=== PATIENT | male | born 1955 | race Caucasian/White ===

== ENCOUNTER 2017-03-19 03:02 | Emergency (ER) | payer OTHER, MEDICAID ==
[2017-03-19] MEDS ORDERED: NS 1,000 ML IV ONE (03:26)
[2017-03-19] MEDS ORDERED: LORazepam 2 MG/ML INJ IVP ONE (03:26)
--- NOTE | 2017-03-19 03:31 | EDPHY ---
H & P Stated Complaint: SHABBIR W/D Time Seen by Provider: 03/19/17 03:15 HPI/ROS: HPI The patient presents with alcohol withdrawal symptoms. He says since midnight tonight when he took his last drink he has been experiencing palpitations, hallucinations that there is someone in his apartment, tremors and anxiety. He has been drinking 1 gal of vodka and 4 beers daily for the last several days. He cannot recall the last time that he was sober. His symptoms started slowly and have gotten progressively worse. He says he is not taking any of his medications including his medications for schizophrenia for the last 2 years. He does not have any interest in going to the [facility].. REVIEW OF SYSTEMS Constitutional: No fever, no chills. Eyes: No discharge. ENT: No sore throat. Cardiovascular: No chest pain, no palpitations. Respiratory: No cough, no shortness of breath. Gastrointestinal: No abdominal pain, no vomiting. Genitourinary: No hematuria. Musculoskeletal: No back pain. Skin: No rashes. Neurological: No headache. PMHx: Hypertension, bipolar disorder, schizoaffective disorder Soc Hx: Lives in an apartment by himself, alcohol abuse PHYSICAL General Appearance: Alert, no distress Eyes: Pupils equal and round no pallor or injection ENT, Mouth: Mucous membranes moist Respiratory: There are no retractions, lungs are clear to auscultation Cardiovascular: Tachycardic rate and regular rhythm Gastrointestinal: Abdomen is soft and non-tender, no masses, bowel sounds normal Neurological: A&O, fine hand tremor, tongue wag is present Skin: Warm and dry, no rashes Musculoskeletal: Neck is supple non tender Extremities: symmetrical, full range of motion Psychiatric: Patient is oriented X 3, there is no agitation Source: Patient Exam Limitations: No limitations - Personal History Current Tetanus/Diphtheria Vaccine: Yes Current Tetanus Diphtheria and Acellular Pertussis (TDAP): Yes Tetanus Vaccine Date: 03/25/11 - Medical/Surgical History Hx Asthma: No Hx Chronic Respiratory Disease: No Hx Diabetes: No Hx Cardiac Disease: No Hx Renal Disease: No Hx Cirrhosis: No Hx Alcoholism: Yes Hx HIV/AIDS: No Hx Splenectomy or Spleen Trauma: No Other PMH: PMH- Prostate Ca., Hep. C, HTN, ETOH, bipolar, schizo affective. PSH - bilat feet, knee replacement, glaucoma. arthritis - Social History Smoking Status: Never smoked Constitutional: Initial Vital Signs Temperature (C) 36.7 C 03/19/17 03:07 Heart Rate 107 H 03/19/17 03:07 Respiratory Rate 16 03/19/17 03:07 Blood Pressure 153/108 H 03/19/17 03:07 O2 Sat (%) 94 03/19/17 03:07 O2 Delivery Mode Room Air Allergies/Adverse Reactions: Iodinated Contrast- Oral and IV Dye Allergy (Unknown, Verified 03/19/17 03:07) Unknown Home Medications: Medication Instructions Recorded ARIPiprazole [Abilify 5 mg (*)] 15 mg PO DAILY #30 tab 04/07/16 Benztropine Mesylate [Cogentin] 1 mg PO BID #60 tab 04/07/16 Bimatoprost 0.01% [Lumigan 0.01% 1 drops EACHEYE DAILY #1 opht.btl 04/07/16 (*)] Ibuprofen [Motrin (*)] 600 mg PO DAILY PRN #0 tab 04/07/16 Lisinopril [Zestril 20 mg (*)] 20 mg PO DAILY #30 tab 04/07/16 Meloxicam [Mobic 15 mg] 15 mg PO DAILY #30 tablet 04/07/16 Naltrexone HCl [Revia] 25 mg PO BID #60 tab 04/07/16 Zolpidem Tartrate [Ambien 10 mg] 10 mg PO HS #30 tablet 04/07/16 Medical Decision Making Differential Diagnosis: This is a 62-year-old male with schizoaffective disorder, bipolar disorder who presents from home after last drink of alcohol approximately 3 and 0.5 hours ago with symptoms of alcohol withdrawal. Differential diagnosis includes alcohol withdrawal, schizoaffective disorder with psychosis, benzodiazepine withdrawal. In the emergency department labs were checked and were relatively unremarkable, his alcohol level was quite elevated. He received IV fluids in a single dose of Ativan with improvement in his symptoms to the point of complete resolution. He felt well enough to go home. I offered him discharged to the [facility], however he declines, he says he does not like it there and would like to just go home. I will not send him home with [facility] in this case. We discussed return precautions the necessity to follow up with primary care doctor as he is not taking any of his medications currently. - Data Points Laboratory Results: Laboratory Results 03/19/17 03:52 03/19/17 03:52 Medications Given: Discontinued Medications Sodium Chloride (Ns) 1,000 mls @ 0 mls/hr IV EDNOW ONE; Wide Open PRN Reason: Protocol Stop: 03/19/17 03:27 Last Admin: 03/19/17 03:57 Dose: 1,000 mls Lorazepam (Ativan Injection) 1 mg IVP EDNOW ONE Stop: 03/19/17 03:27 Last Admin: 03/19/17 03:57 Dose: 1 mg Departure - Departure Disposition: Home, Routine, Self-Care Clinical Impression: Alcohol withdrawal Qualifiers: Complication of substance-induced condition: with delirium Qualified Code(s): F10.231 - Alcohol dependence with withdrawal delirium Condition: Good Instructions: Alcohol Withdrawal (ED) Additional Instructions: Please return to the emergency room if your worse in any way. Referrals: [facility],. [Clinic] - As per Instructions
[2017-03-19 04:11] LABS: % IMMATURE GRANULYOCYTES 0.2 % (0.0-1.1); ABSOLUTE IMMATURE GRANULOCYTES 0.01 10^3/uL (0.00-0.10); ADD DIFF? NO; ADD MORPH? NO; ADD SCAN? NO; ATYPICAL LYMPHOCYTE FLAG 10 (0-99); FRAGMENT RBC FLAG 0 (0-99); HEMATOCRIT 44.9 % (40.0-51.0); HEMOGLOBIN 15.4 g/dL (13.7-17.5); LEFT SHIFT FLG 0 (0-99); LIPEMIA HEMOLYSIS FLAG 90 (0-99); MEAN CELL HEMOGLOBIN 31.7 pg (27.9-34.1); MEAN CELL HEMOGLOBIN CONCENTR. 34.3 g/dL (32.4-36.7); MEAN CELL VOLUME 92.4 fL (81.5-99.8); MEAN PLATELET VOLUME 8.9 fL (8.7-11.7); PLATELET CLUMPS FLAG 0 (0-99); PLATELET COUNT 361 10^3/uL (150-400); RED BLOOD CELL COUNT 4.86 10^6/uL (4.40-6.38); RED CELL DISTRIBUTION WIDTH 13.3 % (11.5-15.2)
[2017-03-19 04:23] LABS: ALANINE AMINOTRANSFERASE 46 IU/L (21-72); ALBUMIN 4.6 g/dL (3.5-5.0); ALKALINE PHOSPHATASE 91 IU/L (38-126); ANION GAP 17 mEq/L (8-16); ASPARTATE AMINOTRANSFERASE 41 IU/L (17-59); BILIRUBIN,TOTAL 0.5 mg/dL (0.1-1.4); CALCIUM 9.1 mg/dL (8.5-10.4); CARBON DIOXIDE 19 mEq/l (22-31); CHLORIDE 110 mEq/L (97-110); ETHANOL SERUM 232 mg/dL (0-10); GLOMERULAR FILTRATION RATE > 60; GLUCOSE 108 mg/dL (70-100); POTASSIUM 5.1 mEq/L (3.5-5.2); SODIUM 146 mEq/L (134-144); TOTAL PROTEIN 7.6 g/dL (6.3-8.2)
[2017-03-19 05:37] VITALS: BP 110/80; PULSE 99; RESP 14; TEMP 97.9; O2SAT 95
== END 2017-03-19 05:35 | disposition home or self-care (01) ==
CPT/HCPCS: 96361; 96374; 99284; J2060; 80305; G0480

== ENCOUNTER 2017-03-25 10:48 | Emergency (ER) | payer OTHER, MEDICAID ==
--- NOTE | 2017-03-25 11:43 | EDPHY ---
H & P Stated Complaint: Pt is intoxicated;states he had 2 sz this morning;off sz meds > 1yr HPI/ROS: CHIEF COMPLAINT: "I had two seizures last night" HISTORY OF PRESENT ILLNESS: The patient is an intoxicated 62 y/o male with a history of alcohol withdrawal seizures who presents for evaluation after two reported seizures last night. He has a history of schizoaffective disorder and polysubstance abuse and several prior psychiatric admissions. He thinks that he struck his head on a park bench after seizing, but he cannot remember exactly what happened. He woke up outside this morning. He reports drinking a gallon of alcohol and using methamphetamine last night, and drinking alcohol again at 10 am today, 2 hours ago. However, he thinks he is currently withdrawing from alcohol. He does not attend rehab because it is too expensive and the [facility] "is a toilet". REVIEW OF SYSTEMS: A ten point review of systems was performed and is negative with the exception of the items mentioned in the HPI. Past medical history includes: 1. Schizoaffective Disorder 2. Bipolar Disorder 3. Chronic noncompliance 4. Hypertension 5. Polysubstance abuse including alcohol, cocaine, and methamphetamine. 6. Hypertension 7. Hepatitis-C Prior medical records reviewed including psychiatric admission on 03/30/16 for suicidal ideation. Past surgical history: Denies Social history: Retired. History of alcohol and methamphetamine abuse. Nonsmoker. General Appearance: Alert. Vital signs reviewed. Blood pressure 142/103. Heart rate 102. Head: Normocephalic atraumatic. Eyes: Pupils equal and round, no conjunctival injection, no discharge. Anicteric. ENT, Mouth: Mucous membranes are moist, no oropharyngeal erythema or edema. Neck: No lymphadenopathy, supple. Respiratory: Lungs are clear to auscultation; no wheezes, rales, or rhonchi. Cardiovascular: Mild tachycardia, regular; no murmur, rub, or gallop. Gastrointestinal: Abdomen is soft and nontender, no masses or organomegaly, bowel sounds normal. Skin: Warm and dry, no rashes on exposed skin, normal color. Back: Nontender to palpation over the thoracolumbar spine. No CVAT. Extremities: No lower extremity edema, no calf tenderness or swelling. Neurological: Alert and oriented. Moving all four extremities easily and equally. Slurred speech consistent with intoxication. Psychiatric: Normal affect. - Personal History Current Tetanus Diphtheria and Acellular Pertussis (TDAP): Yes Tetanus Vaccine Date: 03/25/11 - Medical/Surgical History Hx Asthma: No Hx Chronic Respiratory Disease: No Hx Diabetes: No Hx Cardiac Disease: No Hx Renal Disease: No Hx Cirrhosis: No Hx Alcoholism: Yes Hx HIV/AIDS: No Hx Splenectomy or Spleen Trauma: No Other PMH: PMH- Prostate Ca., Hep. C, HTN, ETOH, bipolar, schizo affective, withsrawal szs. PSH- bilat feet, knee replacement, glaucoma. arthritis - Social History Smoking Status: Never smoked Constitutional: Initial Vital Signs Temperature (C) 36.7 C 03/25/17 10:56 Heart Rate 102 H 03/25/17 10:56 Respiratory Rate 18 03/25/17 10:56 Blood Pressure 142/103 H 03/25/17 10:56 O2 Sat (%) 94 03/25/17 10:56 O2 Delivery Mode Room Air O2 (L/minute) 2 Allergies/Adverse Reactions: Iodinated Contrast- Oral and IV Dye Allergy (Unknown, Verified 03/25/17 10:55) Unknown Home Medications: Medication Instructions Recorded ARIPiprazole [Abilify 5 mg (*)] 15 mg PO DAILY #30 tab 04/07/16 Benztropine Mesylate [Cogentin] 1 mg PO BID #60 tab 04/07/16 Bimatoprost 0.01% [Lumigan 0.01% 1 drops EACHEYE DAILY #1 opht.btl 04/07/16 (*)] Ibuprofen [Motrin (*)] 600 mg PO DAILY PRN #0 tab 04/07/16 Lisinopril [Zestril 20 mg (*)] 20 mg PO DAILY #30 tab 04/07/16 Meloxicam [Mobic 15 mg] 15 mg PO DAILY #30 tablet 04/07/16 Naltrexone HCl [Revia] 25 mg PO BID #60 tab 04/07/16 Zolpidem Tartrate [Ambien 10 mg] 10 mg PO HS #30 tablet 04/07/16 Medical Decision Making ED Course/Re-evaluation: The patient is an intoxicated 62 y/o male presenting for evaluation of seizures secondary to what he believes is alcohol withdrawal despite drinking "1 gallon" of alcohol yesterday. Upon examination he appears intoxicated with no visible trauma or other notable findings. He insists that he wants to seek treatment, but does not want to go to the [facility] Plan for basic labs + EtOH serum level and observation. Reassessed patient, counseled him to decrease his alcohol use and follow up with [facility] if he wishes to detox. He became somewhat belligerent because he was not being admitted for withdrawal. I do not think that he is actively withdrawing. Repeat vital signs show him to be without tachycardia and his blood/pressure is decreased. He did not receive medication here. He was requesting medication for withdrawal. Case management spoke with him and he was given information about [facility]; she offered to call to see if there was a bed available for him but he refuses to remain in the department. He will be returning to his home by [facility]. He had no seizure activity in the department. I do not know whether he had a seizure last night or not. I do not find any evidence of injury related to either falling or seizing. He remained slightly hypertensive in the emergency department. He has a history of hypertension. He is advised to follow up at [facility] concerning blood pressure. Return precautions given. Differential Diagnosis: Seizure including but not limited to electrolyte abnormality, alcohol withdrawal , medication noncompliance, head injury, and breakthrough seizure. - Data Points Laboratory Results: Laboratory Results 03/25/17 11:40 03/25/17 11:40 Departure - Departure Disposition: Home, Routine, Self-Care Clinical Impression: Polysubstance abuse Alcohol intoxication Qualifiers: Complication of substance-induced condition: uncomplicated Qualified Code(s): F10.920 - Alcohol use, unspecified with intoxication, uncomplicated Condition: Good Instructions: Alcohol Intoxication (ED), Abuse of Alcohol (ED), Polysubstance Abuse (ED) Additional Instructions: Medically clear for detox. 1. Go directly to the [facility] for detox if you want to. 2. Call [facility] for information about admission for detox. 3. Follow up with your primary care provider for any unimproved symptoms within the next week. 4. Decrease alcohol use and avoid illicit substances. [facility] [phone] Referrals: [facility] Detox 24 Hours [Outside] - As per Instructions [facility] [Outside] - As per Instructions Hotline [Outside] - As per Instructions Physician Review and Approval Statement: 03/25/17 11:43 Portions of this note were transcribed by the senior medical director. I, Dr. Jessica Miguel, personally performed the history, physical exam, and medical decision- making; and confirmed the accuracy of the information in the transcribed note.
[2017-03-25 11:56] LABS: % IMMATURE GRANULYOCYTES 0.2 % (0.0-1.1); ABSOLUTE IMMATURE GRANULOCYTES 0.01 10^3/uL (0.00-0.10); ADD DIFF? NO; ADD MORPH? NO; ADD SCAN? NO; ATYPICAL LYMPHOCYTE FLAG 0 (0-99); FRAGMENT RBC FLAG 0 (0-99); HEMATOCRIT 44.8 % (40.0-51.0); HEMOGLOBIN 15.4 g/dL (13.7-17.5); LEFT SHIFT FLG 0 (0-99); LIPEMIA HEMOLYSIS FLAG 90 (0-99); MEAN CELL HEMOGLOBIN 31.4 pg (27.9-34.1); MEAN CELL HEMOGLOBIN CONCENTR. 34.4 g/dL (32.4-36.7); MEAN CELL VOLUME 91.4 fL (81.5-99.8); MEAN PLATELET VOLUME 8.9 fL (8.7-11.7); PLATELET CLUMPS FLAG 0 (0-99); PLATELET COUNT 325 10^3/uL (150-400); RED CELL DISTRIBUTION WIDTH 13.4 % (11.5-15.2)
[2017-03-25 12:14] LABS: ANION GAP 16 mEq/L (8-16); CALCIUM 9.2 mg/dL (8.5-10.4); CARBON DIOXIDE 22 mEq/l (22-31); CHLORIDE 108 mEq/L (97-110); GLOMERULAR FILTRATION RATE > 60; GLUCOSE 93 mg/dL (70-100); POTASSIUM 4.2 mEq/L (3.5-5.2); SODIUM 146 mEq/L (134-144)
[2017-03-25 13:00] LABS: ETHANOL SERUM 334 mg/dL (0-10)
[2017-03-25 14:30] VITALS: BP 129/88; PULSE 87; RESP 15; TEMP 98.9; O2SAT 96
== END 2017-03-25 14:28 | disposition home or self-care (01) ==
DX: F19.10 Other psychoactive substance abuse, uncomplicated (principal); F10.920 Alcohol use, unspecified with intoxication, uncomplicated; I10 Essential (primary) hypertension; Z85.46 Personal history of malignant neoplasm of prostate
CPT/HCPCS: G0480

== ENCOUNTER 2017-04-07 00:56 | Emergency (ER) | payer OTHER, MEDICAID ==
[2017-04-07 01:08] VITALS: RESP 16
[2017-04-07] MEDS ORDERED: AMOXICILLIN 250 MG PREPACK#4 BTL TAKEHOME ONE ×2 (01:42)
--- NOTE | 2017-04-07 01:46 | EDPHY ---
H & P Stated Complaint: left side upper dental pain Time Seen by Provider: 04/07/17 01:32 HPI/ROS: Chief Complaint: Tooth pain HPI: 62-year-old male presenting with 4 days of worsening left upper tooth pain. Patient has an appoint with his dentist tomorrow but states the pain got too severe. He has been taking ibuprofen and acetaminophen without any relief. Patient states that the pain radiates up to below his eye. It hurts to chew. Patient also states tender along his left upper gum. He has also been drinking alcohol tonight to help relieve his pain. ROS: 10 point Review of Systems is negative except as noted in the HPI. PMH: Hypertension Family History: [non-contributory] Physical Exam: General: Awake, alert, no acute distress HEENT: The mouth: He has got tenderness and swelling to the gums above his 1st and 2nd premolars. He has tenderness to percussion. He has no trismus. Oropharynx is normal. Neck: No cervical lymphadenopathy, full range of motion without pain. Skin: No rash - Personal History Current Tetanus Diphtheria and Acellular Pertussis (TDAP): Yes Tetanus Vaccine Date: 03/25/11 - Medical/Surgical History Hx Asthma: No Hx Chronic Respiratory Disease: No Hx Diabetes: No Hx Cardiac Disease: No Hx Renal Disease: No Hx Cirrhosis: No Hx Alcoholism: Yes Hx HIV/AIDS: No Hx Splenectomy or Spleen Trauma: No Other PMH: PMH- Prostate Ca., Hep. C, HTN, ETOH, bipolar, schizo affective, withsrawal szs. PSH- bilat feet, knee replacement, glaucoma. arthritis - Social History Smoking Status: Never smoked Constitutional: Initial Vital Signs Temperature (C) 36.5 C 04/07/17 01:02 Heart Rate 98 04/07/17 01:02 Respiratory Rate 16 04/07/17 01:02 Blood Pressure 138/100 H 04/07/17 01:02 O2 Sat (%) 96 04/07/17 01:02 O2 Delivery Mode Room Air Allergies/Adverse Reactions: Iodinated Contrast- Oral and IV Dye Allergy (Unknown, Verified 03/25/17 10:55) Unknown Home Medications: Medication Instructions Recorded ARIPiprazole [Abilify 5 mg (*)] 15 mg PO DAILY #30 tab 04/07/16 Benztropine Mesylate [Cogentin] 1 mg PO BID #60 tab 04/07/16 Bimatoprost 0.01% [Lumigan 0.01% 1 drops EACHEYE DAILY #1 opht.btl 04/07/16 (*)] Ibuprofen [Motrin (*)] 600 mg PO DAILY PRN #0 tab 04/07/16 Lisinopril [Zestril 20 mg (*)] 20 mg PO DAILY #30 tab 04/07/16 Meloxicam [Mobic 15 mg] 15 mg PO DAILY #30 tablet 04/07/16 Naltrexone HCl [Revia] 25 mg PO BID #60 tab 04/07/16 Zolpidem Tartrate [Ambien 10 mg] 10 mg PO HS #30 tablet 04/07/16 Amoxicillin 500 mg PO TID 7 Days cap 04/07/17 Medical Decision Making Procedures: Procedure note: inferior orbital nerve block. Indication: Dental pain. Patient consented to the procedure verbally. Landmarks were identified. Using a: Control syringe the fossa for the inferior orbital nerve was identified. With an intraoral approach the needle was guided to that area and a total of 3 mL of 0.5% bupivacaine without epinephrine was infiltrated into the area. The patient tolerated procedure well. He had good anesthesia with this. There were no complications. Procedure was performed by me. ED Course/Re-evaluation: Patient with left upper premolar dental abscess. Patient had good pain relief with a nerve block. He has been given 500 mg of amoxicillin. He is referred to follow up with his dentist as an outpatient. Departure - Departure Disposition: Home, Routine, Self-Care Clinical Impression: Dental abscess Condition: Good Instructions: Dental Abscess (ED) Additional Instructions: You may alternate ibuprofen with acetaminophen every 4 hours as needed for pain. Please make sure to take her full course of antibiotics. Follow up with her dentist tomorrow as scheduled. Referrals: Leidy Dinero MD [Primary Care Provider] - As per Instructions Prescriptions: Amoxicillin 500 mg PO TID 7 Days cap
[2017-04-07 01:49] VITALS: BP 133/97; PULSE 81; TEMP 98.1; O2SAT 97
== END 2017-04-07 02:02 | disposition home or self-care (01) ==
PROC: 3E0X3BZ Introduction of Anesthetic Agent into Cranial Nerves, Percutaneous Approach (ICD-10-PCS; principal; 2017-04-07)
DX: K04.7 Periapical abscess without sinus (principal); I10 Essential (primary) hypertension; Z85.46 Personal history of malignant neoplasm of prostate

== ENCOUNTER 2017-04-14 17:04 | Emergency (ER) | payer OTHER, MEDICAID ==
[2017-04-14 17:14] VITALS: BP 145/102; PULSE 108; RESP 18; TEMP 98.1; O2SAT 94
[2017-04-14] MEDS ORDERED: CHLORDIAZEPOXIDE 25MG PREPK#6 BTL TAKEHOME ONE (17:41)
--- NOTE | 2017-04-14 17:44 | EDPHY ---
H & P Stated Complaint: Brought by brother for detox;binge drinking past 3 wks Time Seen by Provider: 04/14/17 17:34 HPI/ROS: CHIEF COMPLAINT: Referral for alcohol recovery HISTORY OF PRESENT ILLNESS: The patient is a 62-year-old alcoholic man who is brought to the emergency department by his brother. He is agree to go to the [facility] recovery [facility]. His brother spoke with them earlier on the phone and they mentioned that from there they may be able to get him to [facility]. Brother is willing to take him there. Patient is asking for Librium to have when he gets there. REVIEW OF SYSTEMS: Constitutional: denies: chills, fever, recent illness, recent injury EENTM: denies: blurred vision, double vision, nose congestion Respiratory: denies: cough, shortness of breath Cardiac: denies: chest pain, irregular heart rate, lightheadedness, palpitations Gastrointestinal/Abdominal: denies: abdominal pain, diarrhea, nausea, vomiting, blood streaked stools Genitourinary: denies: dysuria, frequency, hematuria, pain Musculoskeletal: denies: joint pain, muscle pain Skin: denies: lesions, rash, jaundice, bruising Neurological: denies: headache, numbness, paresthesia, tingling, dizziness, weakness Hematologic/Lymphatic: denies: blood clots, easy bleeding, easy bruising Immunologic/allergic: denies: HIV/AIDS, transplant EXAM: GENERAL: Intoxicated HEAD: Atraumatic, normocephalic. EYES: Pupils equal round and reactive to light, extraocular movements intact, sclera anicteric, conjunctiva are normal. ENT: TMs normal, nares patent, oropharynx clear without exudates. Moist mucous membranes. NECK: Normal range of motion, supple without lymphadenopathy or JVD. LUNGS: Breath sounds clear to auscultation bilaterally and equal. No wheezes rales or rhonchi. HEART: Regular rate and rhythm without murmurs, rubs or gallops. ABDOMEN: Soft, nontender, normoactive bowel sounds. No guarding, no rebound. No masses appreciated. BACK: No CVA tenderness, no spinal tenderness, step-offs or deformities EXTREMITIES: Normal range of motion, no pitting or edema. No clubbing or cyanosis. NEUROLOGICAL: Slightly slurred speech, Cranial nerves II through XII grossly intact. Normal speech, normal gait. 5/5 strength, normal movement in all extremities, normal sensation PSYCH: Normal mood, normal affect. SKIN: Warm, dry, normal turgor, no visible rashes or lesions. Source: Patient, Family Exam Limitations: Intoxication - Personal History Current Tetanus/Diphtheria Vaccine: Yes Tetanus Vaccine Date: 03/25/11 - Medical/Surgical History Hx Asthma: No Hx Chronic Respiratory Disease: No Hx Diabetes: No Hx Cardiac Disease: No Hx Renal Disease: No Hx Cirrhosis: No Hx Alcoholism: Yes Hx HIV/AIDS: No Hx Splenectomy or Spleen Trauma: No Other PMH: PMH- Prostate Ca., Hep. C, HTN, ETOH, bipolar, schizo affective, withsrawal szs. PSH- bilat feet, knee replacement, glaucoma. arthritis - Family History Significant Family History: No pertinent family hx - Social History Smoking Status: Never smoked Alcohol Use: Heavy Constitutional: Initial Vital Signs Temperature (C) 36.7 C 04/14/17 17:11 Heart Rate 108 H 04/14/17 17:11 Respiratory Rate 18 04/14/17 17:11 Blood Pressure 145/102 H 04/14/17 17:11 O2 Sat (%) 94 04/14/17 17:11 O2 Delivery Mode Room Air Allergies/Adverse Reactions: Iodinated Contrast- Oral and IV Dye Allergy (Unknown, Verified 04/14/17 17:10) Unknown Home Medications: Medication Instructions Recorded ARIPiprazole [Abilify 5 mg (*)] 15 mg PO DAILY #30 tab 04/07/16 Benztropine Mesylate [Cogentin] 1 mg PO BID #60 tab 04/07/16 Bimatoprost 0.01% [Lumigan 0.01% 1 drops EACHEYE DAILY #1 opht.btl 04/07/16 (*)] Ibuprofen [Motrin (*)] 600 mg PO DAILY PRN #0 tab 04/07/16 Lisinopril [Zestril 20 mg (*)] 20 mg PO DAILY #30 tab 04/07/16 Meloxicam [Mobic 15 mg] 15 mg PO DAILY #30 tablet 04/07/16 Naltrexone HCl [Revia] 25 mg PO BID #60 tab 04/07/16 Zolpidem Tartrate [Ambien 10 mg] 10 mg PO HS #30 tablet 04/07/16 Amoxicillin 500 mg PO TID 7 Days cap 04/07/17 Amoxicillin Trihydrate 500 mg PO 04/14/17 [Amoxicillin] Medical Decision Making ED Course/Re-evaluation: The patient's brother will take him to the [facility]. We will give him Librium prepack to give to the [facility]. Patient is agreeable with this. They declined any testing or further workup. Differential Diagnosis: Partial list of the Differential diagnosis considered include but were not limited to; alcohol intoxication, alcoholism and although unlikely based on the history and physical exam, I also considered withdrawal, infection, head injury. I discussed these differential diagnoses and the plan with the patient as well as the usual and expected course. The patient understands that the diagnosis is provisional and that in medicine we are not always correct and that further workup is often warranted. Usual and customary warnings were given. All of the patient's questions were answered. The patient was instructed to return to the emergency department should the symptoms at all worsen or return, otherwise to followup with the physician as we discussed. - Data Points Medications Given: Discontinued Medications Chlordiazepoxide (Librium 25 Mg Prepack#6) 1 btl TAKEHOME EDNOW ONE Stop: 04/14/17 17:42 Last Admin: 04/14/17 18:02 Dose: 1 btl Departure - Departure Disposition: Home, Routine, Self-Care Clinical Impression: Alcohol dependence Qualifiers: Substance use status: with intoxication Complication of substance-induced condition: with unspecified complication Qualified Code(s): F10.229 - Alcohol dependence with intoxication, unspecified Condition: Fair Instructions: Alcohol Intoxication (ED) Referrals: Leidy Dinero MD [Primary Care Provider] - As per Instructions
== END 2017-04-14 18:00 | disposition home or self-care (01) ==
DX: F10.229 Alcohol dependence with intoxication, unspecified (principal); I10 Essential (primary) hypertension; Z85.46 Personal history of malignant neoplasm of prostate

== ENCOUNTER 2017-04-16 01:15 | Emergency (ER) | payer OTHER, MEDICAID ==
[2017-04-16 01:27] VITALS: BP 152/126; PULSE 107; RESP 16; TEMP 97.9; O2SAT 96
--- NOTE | 2017-04-16 01:34 | EDPHY ---
H & P Stated Complaint: ETOH HPI/ROS: HPI CHIEF COMPLAINT: Alcohol withdraw HISTORY OF PRESENT ILLNESS: This patient is 62-year-old male, well-known to the emergency room as well as myself. He is an alcoholic. He drinks alcohol daily. He took a new over here to the emergency room requesting that he gets Librium. He would like to take Librium to help with withdrawal. He states he drank most this evening. Last drink was approximately an hour ago. He presents emergency room slurring his speech. He is intoxicated with alcohol. There is no evidence of alcohol draw at this time. He does not want to go to the [facility]. I explained that I cannot give him Librium to go home on as it is a medication that is rather dangerous and can sedate him. Plus he will most likely continue drink alcohol. He understands this. He does not want to go to the [facility]. He now states he would like to go home. Past Medical History: Depression, schizophrenia, prostate CA, hypertension, alcoholism Past Surgical History: No recent surgery Social History: Daily alcohol use, lives locally. Family History: Noncontributory ROS REVIEW OF SYSTEMS: A comprehensive 10 point review of systems is otherwise negative aside from elements mentioned in the history of present illness. Exam Constitutional smells of alcohol, triage nursing summary reviewed, vital signs reviewed, awake/alert. Eyes normal conjunctivae and sclera, EOMI, PERRLA. HENT normal inspection, atraumatic, moist mucus membranes, no epistaxis, neck supple/ no meningismus, no raccoon eyes. Respiratory clear to auscultation bilaterally, normal breath sounds, no respiratory distress, no wheezing. Cardiovascular rate normal, regular rhythm, no murmur, no edema, distal pulses normal. Gastrointestinal soft, non-tender, no rebound, no guarding, normal bowel sounds, no distension, no pulsatile mass. Genitourinary no CVA tenderness. Musculoskeletal no midline vertebral tenderness, full range of motion, no calf swelling, no tenderness of extremities, no meningismus, good pulses, neurovascularly intact. Skin pink, warm, & dry, no rash, skin atraumatic. Neurologic awake, alert and oriented x 3, AAOx3, moves all 4 extremities equally, motor intact, sensory intact, CN II-XII intact, normal cerebellar, normal vision, slight slurred speech. Normal gait. No ataxia. Psychiatric normal mood/affect. Heme/Lymph/Immune no lymphadenopathy. Differential Diagnosis: Includes but is not limited to in a particular order acute alcohol intoxication, dehydration. Medical Decision Making: Plan for this patient breath alcohol. At his request he is requesting be discharged home. I am unable to provide him Librium for home. Source: Patient - Personal History Current Tetanus/Diphtheria Vaccine: Yes Current Tetanus Diphtheria and Acellular Pertussis (TDAP): Yes Tetanus Vaccine Date: 03/25/11 - Medical/Surgical History Hx Asthma: No Hx Chronic Respiratory Disease: No Hx Diabetes: No Hx Cardiac Disease: No Hx Renal Disease: No Hx Cirrhosis: No Hx Alcoholism: Yes Hx HIV/AIDS: No Hx Splenectomy or Spleen Trauma: No Other PMH: PMH- Prostate Ca., Hep. C, HTN, ETOH, bipolar, schizo affective, withsrawal szs. PSH- bilat feet, knee replacement, glaucoma. arthritis - Social History Smoking Status: Never smoked Constitutional: Initial Vital Signs Temperature (C) 36.6 C 04/16/17 01:24 Heart Rate 107 H 04/16/17 01:24 Respiratory Rate 16 04/16/17 01:24 Blood Pressure 152/126 H 04/16/17 01:24 O2 Sat (%) 96 04/16/17 01:24 O2 Delivery Mode Room Air Allergies/Adverse Reactions: Iodinated Contrast- Oral and IV Dye Allergy (Unknown, Verified 04/14/17 17:10) Unknown Home Medications: Medication Instructions Recorded Lisinopril [Zestril 20 mg (*)] 20 mg PO DAILY #30 tab 04/07/16 Departure - Departure Disposition: Home, Routine, Self-Care Clinical Impression: Alcohol intoxication Qualifiers: Complication of substance-induced condition: uncomplicated Qualified Code(s): F10.920 - Alcohol use, unspecified with intoxication, uncomplicated Condition: Good Instructions: Alcohol Intoxication (ED) Referrals: NONE *PRIMARY CARE P,. [Primary Care Provider] - As per Instructions
== END 2017-04-16 01:55 | disposition home or self-care (01) ==
DX: F10.920 Alcohol use, unspecified with intoxication, uncomplicated (principal); I10 Essential (primary) hypertension; Z85.46 Personal history of malignant neoplasm of prostate

== ENCOUNTER → 2017-04-26 | Outpatient (CLI) | payer OTHER, MEDICAID | LOC: FIMAGING 13:52 | PROVIDERS: ATTEND Family Medicine | DX: J84.10 Pulmonary fibrosis, unspecified (principal); I25.10 Atherosclerotic heart disease of native coronary artery without angina pectoris; N20.0 Calculus of kidney; M25.78 Osteophyte, vertebrae ==

== ENCOUNTER 2017-05-16 23:43 | Emergency (ER) | payer OTHER, MEDICAID ==
[2017-05-17] MEDS ORDERED: chlordiazePOXIDE 25 MG CAP PO ONE ×2 (00:43→00:46)
[2017-05-17] MEDS ORDERED: chlordiazePOXIDE 25 MG CAP ONE (00:43)
--- NOTE | 2017-05-17 00:47 | EDPHY ---
H & P Stated Complaint: "severe withdrawals" EtOH and heroin; last EtOH 20 min ago Time Seen by Provider: 05/17/17 00:32 HPI/ROS: HPI The patient presents with alcohol withdrawal which he says has been present for the last about 1 hour. He stopped drinking at about this time. He has been drinking 2 1/5 bottles of alcohol daily in addition to several beers over the last several days. He says yesterday he had 2 seizures at night he believes. He now feels jittery and has hallucinations he says. He says he also has been using heroin over the last several days. He says he does not want to [facility] because it is a waste of his time and does not want to be there. We have called them and they can accept him there. REVIEW OF SYSTEMS Constitutional: No fever, no chills. Eyes: No discharge. ENT: No sore throat. Cardiovascular: No chest pain, no palpitations. Respiratory: No cough, no shortness of breath. Gastrointestinal: No abdominal pain, no vomiting. Genitourinary: No hematuria. Musculoskeletal: No back pain. Skin: No rashes. Neurological: No headache. PMHx: Multiple ER visits for alcohol-related complaints and alcohol withdrawal , history of alcohol withdrawal seizure Soc Hx: Chronic alcohol abuse, heroin use PHYSICAL General Appearance: Alert, no distress Eyes: Pupils equal and round no pallor or injection ENT, Mouth: Mucous membranes moist Respiratory: There are no retractions, lungs are clear to auscultation Cardiovascular: Regular rate and rhythm, becomes tachycardic when he sits up Gastrointestinal: Abdomen is soft and non-tender, no masses, bowel sounds normal Neurological: A&O, moves all extremities, faint hand tremor, there is no tongue wag Skin: Warm and dry, no rashes Musculoskeletal: Neck is supple non tender Extremities: symmetrical, full range of motion Psychiatric: Patient is oriented X 3, there is no agitation Source: Patient Exam Limitations: No limitations - Personal History Current Tetanus/Diphtheria Vaccine: Yes Tetanus Vaccine Date: 03/25/11 - Medical/Surgical History Hx Asthma: No Hx Chronic Respiratory Disease: No Hx Diabetes: No Hx Cardiac Disease: No Hx Renal Disease: No Hx Cirrhosis: No Hx Alcoholism: Yes Hx HIV/AIDS: No Hx Splenectomy or Spleen Trauma: No Other PMH: PMH- Prostate Ca., Hep. C, HTN, ETOH, bipolar, schizo affective, withsrawal szs. PSH- bilat feet, knee replacement, glaucoma. arthritis - Social History Smoking Status: Never smoked Constitutional: Initial Vital Signs Temperature (C) 36.5 C 05/16/17 23:46 Heart Rate 111 H 05/16/17 23:46 Respiratory Rate 17 05/16/17 23:46 Blood Pressure 175/103 H 05/16/17 23:46 O2 Sat (%) 95 05/16/17 23:46 O2 Delivery Mode Room Air Allergies/Adverse Reactions: Iodinated Contrast- Oral and IV Dye Allergy (Unknown, Verified 04/14/17 17:10) Unknown Home Medications: Medication Instructions Recorded Lisinopril [Zestril 20 mg (*)] 20 mg PO DAILY #30 tab 04/07/16 Medical Decision Making Differential Diagnosis: 62-year-old male, frequent ER visitor presents with symptoms of alcohol withdrawal, last drink about 1 hour prior to my assessment. Here he is tachycardic and hypertensive. He does have hand tremor. Differential diagnosis includes alcohol withdrawal, anxiety attack, benzodiazepine withdrawal. I will treat him with Librium 50 mg here and reassess him. The patient improved after receiving the medication, heart rate and blood pressure stabilized. He felt well enough to go home and will be discharged. He declined going [facility], therefore I did not give him a Librium prescription. - Data Points Medications Given: Discontinued Medications Chlordiazepoxide HCl (Librium) 50 mg PO EDNOW ONE Stop: 05/17/17 00:47 Last Admin: 05/17/17 00:47 Dose: 50 mg Chlordiazepoxide HCl (Librium) 50 mg PO EDNOW ONE Stop: 05/17/17 00:44 Last Admin: 05/17/17 00:48 Dose: Not Given Departure - Departure Disposition: Home, Routine, Self-Care Clinical Impression: Alcohol withdrawal delirium Condition: Good Instructions: Alcohol Withdrawal (ED) Referrals: [facility],. [Primary Care Provider] - As per Instructions
[2017-05-17 02:56] VITALS: BP 130/74; PULSE 104; RESP 20; TEMP 97.9; O2SAT 97
== END 2017-05-17 02:56 | disposition home or self-care (01) ==
DX: F10.231 Alcohol dependence with withdrawal delirium (principal); I10 Essential (primary) hypertension; Z85.46 Personal history of malignant neoplasm of prostate

== ENCOUNTER → 2017-05-23 | Outpatient (CLI) | payer OTHER, MEDICAID | LOC: BHFA 11:30 | PROVIDERS: ATTEND Internal Medicine Cardiovascular Disease | DX: I25.10 Atherosclerotic heart disease of native coronary artery without angina pectoris (principal) ==

== ENCOUNTER 2017-05-29 01:54 | Emergency (ER) | payer OTHER, MEDICAID ==
[2017-05-29 01:12] VITALS: RESP 18
--- NOTE | 2017-05-29 01:22 | EDPHY ---
H & P Stated Complaint: ETOH withdrawl Time Seen by Provider: 05/29/17 01:12 MST HPI/ROS: HPI The patient presents with concern for alcohol withdrawal, last alcoholic beverage was at about 9:00 p.m. last night. He drinks 1 to 2-1/5 bottles of hard alcohol daily. He is feeling anxious, tremulous. He has had multiple previous visits for alcohol withdrawal symptoms. He has not had a seizure. He would [facility] to [facility].. REVIEW OF SYSTEMS Constitutional: No fever, no chills. Eyes: No discharge. ENT: No sore throat. Cardiovascular: No chest pain, no palpitations. Respiratory: No cough, no shortness of breath. Gastrointestinal: No abdominal pain, no vomiting. Genitourinary: No hematuria. Musculoskeletal: No back pain. Skin: No rashes. Neurological: No headache. PMHx: Chronic alcohol abuse, previous alcohol withdrawal seizures Soc Hx: Alcohol PHYSICAL General Appearance: Alert, no distress Eyes: Pupils equal and round no pallor or injection ENT, Mouth: Mucous membranes moist Respiratory: There are no retractions, lungs are clear to auscultation Cardiovascular: Tachycardic rate with regular rhythm Gastrointestinal: Abdomen is soft and non-tender, no masses, bowel sounds normal Neurological: A&O, moves all extremities, hand tremor is present bilaterally Skin: Warm and dry, no rashes Musculoskeletal: Neck is supple non tender Extremities: symmetrical, full range of motion Psychiatric: Patient is oriented X 3, there is no agitation Source: Patient Exam Limitations: No limitations - Personal History Current Tetanus/Diphtheria Vaccine: Yes Current Tetanus Diphtheria and Acellular Pertussis (TDAP): Yes Tetanus Vaccine Date: 03/25/11 - Medical/Surgical History Hx Asthma: No Hx Chronic Respiratory Disease: No Hx Diabetes: No Hx Cardiac Disease: No Hx Renal Disease: No Hx Cirrhosis: No Hx Alcoholism: Yes Hx HIV/AIDS: No Hx Splenectomy or Spleen Trauma: No Other PMH: PMH- Prostate Ca., Hep. C, HTN, ETOH, bipolar, schizo affective, withsrawal szs. PSH- bilat feet, knee replacement, glaucoma. arthritis - Social History Smoking Status: Never smoked Constitutional: Initial Vital Signs Temperature (C) 37.1 C 05/29/17 01:58 MDT Heart Rate 131 H 05/29/17 01:58 MDT Respiratory Rate 18 11/05/17 01:58 MDT Blood Pressure 116/90 H 05/29/17 01:58 MDT O2 Sat (%) 94 05/29/17 01:58 MDT O2 Delivery Mode Room Air Allergies/Adverse Reactions: Iodinated Contrast- Oral and IV Dye Allergy (Unknown, Verified 05/29/17 01:57 MDT) Unknown Home Medications: Medication Instructions Recorded Lisinopril [Zestril 20 mg (*)] 20 mg PO DAILY #30 tab 04/07/16 Medical Decision Making Differential Diagnosis: 62-year-old male, well known to this emergency department because of his chronic alcohol abuse and alcohol withdrawal symptoms, presents with alcohol withdrawal symptoms for the last several hours. On arrival, he is tachycardic, he does have a hand tremor, the remainder of his exam is unremarkable. Plan for treatment with Ativan and Librium. Patient's symptoms and heart rate improved after treatment with medication. He felt well enough to go to the [facility] and was discharged there with a Librium pill pack. Differential diagnoses considered include alcohol withdrawal, anxiety attack, substance abuse. - Data Points Medications Given: Discontinued Medications Chlordiazepoxide (Librium 25 Mg Prepack#6) 1 btl TAKEHOME EDNOW ONE Stop: 05/29/17 02:32 Last Admin: 05/29/17 02:37 Dose: 1 btl Chlordiazepoxide HCl (Librium) 50 mg PO EDNOW ONE Stop: 05/29/17 01:19 [facility] Last Admin: 05/29/17 01:20 [facility] Dose: 50 mg Lorazepam (Ativan) 1 mg PO EDNOW ONE Stop: 05/29/17 01:19 [facility] Last Admin: 05/29/17 01:20 [facility] Dose: 1 mg Lorazepam (Ativan) 1 mg PO EDNOW ONE Stop: 05/29/17 02:32 Last Admin: 05/29/17 02:38 Dose: 1 mg Departure - Departure Disposition: Home, Routine, Self-Care Clinical Impression: Alcoholism Alcohol withdrawal Qualifiers: Complication of substance-induced condition: uncomplicated Qualified Code(s): F10.230 - Alcohol dependence with withdrawal, uncomplicated Condition: Good Instructions: Chlordiazepoxide/Clidinium (By mouth), Alcohol Withdrawal (ED) Referrals: [facility] [Other] - As per Instructions
[~2017-05-29 01:54] MED LIST: LORazepam 1 MG TAB ONE; LORazepam 1 MG TAB PO ONE; chlordiazePOXIDE 25 MG CAP ONE; chlordiazePOXIDE 25 MG CAP PO ONE
[2017-05-29] MEDS ORDERED: CHLORDIAZEPOXIDE 25MG PREPK#6 BTL TAKEHOME ONE (02:31)
[2017-05-29] MEDS ORDERED: LORazepam 1 MG TAB PO ONE (02:31)
[2017-05-29 04:00] VITALS: BP 129/78; PULSE 104; TEMP 97.7; O2SAT 95
== END 2017-05-29 04:13 | disposition home or self-care (01) ==
DX: F10.230 Alcohol dependence with withdrawal, uncomplicated (principal); I10 Essential (primary) hypertension; Z85.46 Personal history of malignant neoplasm of prostate

== ENCOUNTER 2017-08-06 21:58 | Emergency (ER) | payer OTHER, MEDICAID ==
[2017-08-06 22:07] VITALS: BP 156/104; PULSE 100; RESP 20; TEMP 97.9; O2SAT 96
--- NOTE | 2017-08-06 22:28 | EDPHY ---
H & P Time Seen by Provider: 08/06/17 22:19 HPI/ROS: Chief complaint: Toothache History of present illness: 62-year-old male presents to the emergency department for evaluation of toothache. He reports the onset of symptoms over the last 3 days. Pain is in the right, upper aspect of his mouth. He feels like the area is getting swollen. He is concerned this is infection as he has had problems with infections in the past. He denies other associated signs or symptoms including no report of fevers, no difficulty opening or closing the mouth, no difficulty talking, no difficulty swallowing, no difficulty breathing. Smoking Status: Never smoked Physical Exam: General: Alert, nontoxic Mouth/ENT: Patient is tender to percussion over the right superior 2nd molar. No pustular discharge. No swelling of the gums. Oropharynx is not injected. There is no edema. There is no exudate. There is no asymmetry. The uvula is midline. No elevation of the tongue. There is no hoarseness, no drooling, no trismus, no stridor. Skin: No erythema or edema of the face or neck. Constitutional: Initial Vital Signs Temperature (C) 36.6 C 08/06/17 22:04 Heart Rate 100 08/06/17 22:04 Respiratory Rate 20 08/06/17 22:04 Blood Pressure 156/104 H 08/06/17 22:04 O2 Sat (%) 96 08/06/17 22:04 O2 Delivery Mode Room Air Allergies/Adverse Reactions: Iodinated Contrast- Oral and IV Dye Allergy (Unknown, Verified 08/06/17 22:04) Unknown Home Medications: Medication Instructions Recorded Lisinopril [Zestril 20 mg (*)] 20 mg PO DAILY #30 tab 04/07/16 AMOXICILLIN TRIHYDRATE [Amoxil] 875 mg PO BID 7 Days tablet 08/06/17 Hydrocodone/APAP 5/325 [Belva 1 tab PO Q6H #6 tab 08/06/17 5/325 (*)] MDM/Departure - MDM Medications Given: Discontinued Medications Amoxicillin/Clavulanate Potassium (Augmentin 875mg) 875 mg PO EDNOW ONE PRN Reason: Protocol Stop: 08/06/17 22:31 Last Admin: 08/06/17 22:48 Dose: 875 mg ED Course/Re-evaluation: Patient seen under the supervision of my secondary supervising physician Dr. Luis Ramirez. Patient presents to the emergency department for a toothache. I am concerned for periodontal infection. He is started on antibiotics. He is given referral information for a dentist to follow up with. Return precautions are given. Patient voiced understanding and agreement with plan. - Depart Disposition: Home, Routine, Self-Care Clinical Impression: Dental abscess Condition: Good Instructions: Dental Abscess (ED) Additional Instructions: Follow-up with a dentist for continued evaluation and care In regards to pain control see the following: Use ibuprofen [600] mg [3] times a day for the next 2-3 days for pain In addition You have been prescribed [Belva] for pain. [Belva] contains Tylenol, do not take extra Tylenol/acetaminophen/Apap with it. It is sedating. If symptoms worsen or new symptoms develop return to the emergency room for recheck Prescriptions: AMOXICILLIN TRIHYDRATE [Amoxil] 875 mg PO BID 7 Days tablet Hydrocodone/APAP 5/325 [Belva 5/325 (*)] 1 tab PO Q6H #6 tab Referrals: NONE *PRIMARY CARE P,. [Primary Care Provider] - As per Instructions [facility] [Outside] - As per Instructions [facility] [Outside] - As per Instructions Dental [facility] [Outside] - As per Instructions Dental [facility] [Outside] - As per Instructions Dental [facility] [Outside] - As per Instructions [facility],. [Clinic] - As per Instructions
[2017-08-06] MEDS ORDERED: AMOXICILLIN/CLAVULANATE POT 875/125 MG TAB PO ONE (22:30)
== END 2017-08-06 22:55 | disposition home or self-care (01) ==
DX: K04.7 Periapical abscess without sinus (principal)

== ENCOUNTER 2017-09-06 05:39 | Inpatient (IN) | payer OTHER, MEDICAID ==
[2017-09-06] MEDS ORDERED: NS 2,000 ML IV ONE (05:45)
--- NOTE | 2017-09-06 05:47 | EDPHY ---
H & P Source: Patient, EMS - Personal History Tetanus Vaccine Date: 03/25/11 - Medical/Surgical History Hx Asthma: No Hx Chronic Respiratory Disease: No Hx Diabetes: No Hx Cardiac Disease: No Hx Renal Disease: No Hx Cirrhosis: No Hx Alcoholism: Yes Hx HIV/AIDS: No Hx Splenectomy or Spleen Trauma: No Other PMH: PMH- Prostate Ca., Hep. C, HTN, ETOH, bipolar, schizo affective, withsrawal szs. PSH- bilat feet, knee replacement, glaucoma. arthritis - Social History Smoking Status: Never smoked HPI/ROS: HPI CHIEF COMPLAINT: Drug overdose, alcohol intoxication, suicidal, M1 hold HISTORY OF PRESENT ILLNESS: This patient is a 62-year-old male history of schizophrenia, and alcoholism, he presents emergency room by EMS for suicidal ideation with drug overdose. Patient reports that he took 100 tabs of 20 mg lisinopril approximately 2 hr ago or at 3:45 a.m.. He distally reports that he took 20 tabs of 15 mg meloxicam at the same time. Additionally he reports to me that he has had 20 beers over the past 24 hr as well as multiple whiskey shots. He presents emergency room intoxicated but with stable vital signs he is not hypotensive or bradycardic. He has no complaints. He states he did this to commit suicide. He is feeling more depressed and he states his schizophrenia is acting up. Past Medical History: Schizophrenia, depression, hypertension, alcoholism Past Surgical History: Knee surgery Social History: Smokes tobacco daily, drinks alcohol daily. Family History: Noncontributory ROS REVIEW OF SYSTEMS: A comprehensive 10 point review of systems is otherwise negative aside from elements mentioned in the history of present illness. Exam Constitutional smells of alcohol, intoxicated, triage nursing summary reviewed , vital signs reviewed, awake/alert. Eyes normal conjunctivae and sclera, EOMI, PERRLA. HENT normal inspection, atraumatic, moist mucus membranes, no epistaxis, neck supple/ no meningismus, no raccoon eyes. Respiratory clear to auscultation bilaterally, normal breath sounds, no respiratory distress, no wheezing. Cardiovascular rate normal, regular rhythm, no murmur, no edema, distal pulses normal. Gastrointestinal soft, non-tender, no rebound, no guarding, normal bowel sounds, no distension, no pulsatile mass. Genitourinary no CVA tenderness. Musculoskeletal no midline vertebral tenderness, full range of motion, no calf swelling, no tenderness of extremities, no meningismus, good pulses, neurovascularly intact. Skin pink, warm, & dry, no rash, skin atraumatic. Neurologic awake, alert and oriented x 3, AAOx3, moves all 4 extremities equally, motor intact, sensory intact, CN II-XII intact, normal cerebellar, normal vision, normal speech. Psychiatric flat affect, suicide Heme/Lymph/Immune no lymphadenopathy. Differential Diagnosis: Includes but is not limited to in a particular order suicidal ideation, suicide attempt, drug overdose, alcohol intoxication, lisinopril overdose, meloxicam overdose, renal failure, bradycardia, hypertension Medical Decision Making: Plan for this patient IV establishment blood draw, blood work for medical clearance, drug screen, check alcohol level, check acetaminophen level, salicylate level, monitor on desk monitor obtain EKG. Supportive care is needed IV fluids, vasopressors for hypotension and bradycardia. Will monitor for 6 hr for observation for clearance. Will repeat BMP at the end of his medical clearance to make sure his kidney function is staying appropriately and does not obtain an acidosis. Additionally will check KUB for pill bezoar. Re-evaluation: 0551: Patient is on M1 hold by police. 0552AM: Contacted Poison Control: . EKG interpretation by me on record in [employer] system. Impression time of EKG 5:55 a.m. sinus tachycardia rate of 102 no prolonged intervals. Otherwise unremarkable EKG. 0648: Patient's KUB reviewed. Shows no pill bezoar. Unremarkable KUB. Alcohol level noted to be elevated. Patient need 6 hr of observation for hypertension bradycardia and repeat BMP. And that can be medically cleared have mental health evaluation. 0700: Signed over to Dr. Martinez at 7am shift change. (Luis Ramirez) Constitutional: Initial Vital Signs Temperature (C) 36.6 C 09/06/17 05:46 Heart Rate 105 H 09/06/17 05:46 Respiratory Rate 16 09/06/17 05:46 Blood Pressure 153/114 H 09/06/17 05:46 O2 Sat (%) 96 09/06/17 05:46 O2 Delivery Mode Room Air O2 (L/minute) 2 Allergies/Adverse Reactions: Iodinated Contrast- Oral and IV Dye Allergy (Unknown, Verified 09/06/17 05:45) Unknown Home Medications: Medication Instructions Recorded Lisinopril [Zestril 20 mg (*)] 20 mg PO DAILY #30 tab 04/07/16 Meloxicam 09/06/17 Medical Decision Making - Diagnostics Imaging Results: Imaging Impressions Abdomen X-Ray 09/06/17 05:45 Impression: 1. Stable left nephrolithiasis, compared 03/12/2011. 2. Nonspecific bowel gas pattern, with no mechanical obstruction observed. ED Course/Re-evaluation: 8:00 a.m.: The patient did developed symptoms of mild tremor and reports that he feels he is having mild alcohol withdrawal. The patient received 1 mg of Ativan orally. The patient did have a repeat basic metabolic panel performed at noon which demonstrates no evidence of renal insufficiency. The patient has developed no hypotension or vital sign abnormality throughout his stay in ED. The patient did received additional Ativan for alcohol withdrawal. He has been medically cleared for psychiatric evaluation at 12:40 p.m.. (David Martinez) Other Provider: I assumed care of the patient at 0700 pending psychiatric disposition. The patient will be turned over to Dr. Patel at shift change pending psychiatric disposition. (David Martinez) - Data Points Laboratory Results: Laboratory Results 09/06/17 05:50 09/06/17 11:50 09/06/17 09/06/17 09/06/17 11:50 06:05 05:50 WBC RBC Hgb Hct MCV MCH MCHC RDW Plt Count MPV Neut % (Auto) Lymph % (Auto) Clayton % (Auto) Eos % (Auto) Baso % (Auto) Nucleat RBC Rel Count Absolute Neuts (auto) Absolute Lymphs (auto) Absolute Monos (auto) Absolute Eos (auto) Absolute Basos (auto) Absolute Nucleated RBC Immature Gran % Immature Gran # Sodium 143 mEq/L mEq/L 146 mEq/L H mEq/L (135-145) (135-145) Potassium 4.5 mEq/L mEq/L 4.8 mEq/L mEq/L (3.5-5.2) (3.5-5.2) Chloride 109 mEq/L mEq/L 104 mEq/L mEq/L (97-110) (97-110) Carbon Dioxide 18 mEq/l L mEq/l 23 mEq/l mEq/l (22-31) (22-31) Anion Gap 16 mEq/L mEq/L 19 mEq/L H mEq/L (8-16) (8-16) BUN 11 mg/dL mg/dL 14 mg/dL mg/dL (7-23) (7-23) Creatinine 0.9 mg/dL mg/dL 1.0 mg/dL mg/dL (0.7-1.3) (0.7-1.3) Estimated GFR > 60 > 60 Glucose 83 mg/dL mg/dL 108 mg/dL H mg/dL (70-100) (70-100) Calcium 9.1 mg/dL mg/dL 9.8 mg/dL mg/dL (8.5-10.4) (8.5-10.4) Total Bilirubin 0.5 mg/dL mg/dL (0.1-1.4) Conjugated Bilirubin 0.2 mg/dL mg/dL (0.0-0.5) Unconjugated Bilirubin 0.3 mg/dL mg/dL (0.0-1.1) AST 61 IU/L H IU/L (17-59) ALT 79 IU/L H IU/L (21-72) Alkaline Phosphatase 92 IU/L IU/L (38-126) Total Protein 7.9 g/dL g/dL (6.3-8.2) Albumin 4.9 g/dL g/dL (3.5-5.0) Salicylates < 1.0 mg/dL L mg/dL (2.0-20.0) Urine Opiates Screen NEGATIVE (NEGATIVE) Acetaminophen < 10 mcg/mL L mcg/mL (10-30) Urine Barbiturates NEGATIVE (NEGATIVE) Ur Phencyclidine Scrn NEGATIVE (NEGATIVE) Ur Amphetamine Screen NEGATIVE (NEGATIVE) U Benzodiazepines Scrn NEGATIVE (NEGATIVE) Urine Cocaine Screen NEGATIVE (NEGATIVE) U Marijuana (THC) Screen NEGATIVE (NEGATIVE) Ethyl Alcohol 163 mg/dL H mg/dL (0-10) 09/06/17 05:50 WBC 5.66 10^3/uL 10^3/uL (3.80-9.50) RBC 4.88 10^6/uL 10^6/uL (4.40-6.38) Hgb 16.0 g/dL g/dL (13.7-17.5) Hct 46.1 % % (40.0-51.0) MCV 94.5 fL fL (81.5-99.8) MCH 32.8 pg pg (27.9-34.1) MCHC 34.7 g/dL g/dL (32.4-36.7) RDW 13.5 % % (11.5-15.2) Plt Count 431 10^3/uL H 10^3/uL (150-400) MPV 8.7 fL fL (8.7-11.7) Neut % (Auto) 44.0 % % (39.3-74.2) Lymph % (Auto) 43.1 % % (15.0-45.0) Clayton % (Auto) 8.8 % % (4.5-13.0) Eos % (Auto) 1.8 % % (0.6-7.6) Baso % (Auto) 2.1 % H % (0.3-1.7) Nucleat RBC Rel Count 0.0 % % (0.0-0.2) Absolute Neuts (auto) 2.49 10^3/uL 10^3/uL (1.70-6.50) Absolute Lymphs (auto) 2.44 10^3/uL 10^3/uL (1.00-3.00) Absolute Monos (auto) 0.50 10^3/uL 10^3/uL (0.30-0.80) Absolute Eos (auto) 0.10 10^3/uL 10^3/uL (0.03-0.40) Absolute Basos (auto) 0.12 10^3/uL H 10^3/uL (0.02-0.10) Absolute Nucleated RBC 0.00 10^3/uL 10^3/uL (0-0.01) Immature Gran % 0.2 % % (0.0-1.1) Immature Gran # 0.01 10^3/uL 10^3/uL (0.00-0.10) Sodium Potassium Chloride Carbon Dioxide Anion Gap BUN Creatinine Estimated GFR Glucose Calcium Total Bilirubin Conjugated Bilirubin Unconjugated Bilirubin AST ALT Alkaline Phosphatase Total Protein Albumin Salicylates Urine Opiates Screen Acetaminophen Urine Barbiturates Ur Phencyclidine Scrn Ur Amphetamine Screen U Benzodiazepines Scrn Urine Cocaine Screen U Marijuana (THC) Screen Ethyl Alcohol Medications Given: Discontinued Medications Sodium Chloride (Ns) 2,000 mls @ 0 mls/hr IV ONCE ONE PRN Reason: Wide Open Stop: 09/06/17 05:46 Last Admin: 09/06/17 05:57 Dose: 2,000 mls Lorazepam (Ativan) 1 mg PO EDNOW ONE Stop: 09/06/17 07:54 Last Admin: 09/06/17 08:02 Dose: 1 mg Lorazepam (Ativan Injection) 2 mg IVP EDNOW ONE Stop: 09/06/17 11:53 Last Admin: 09/06/17 11:58 Dose: 2 mg Departure - Departure Clinical Impression: Suicidal ideation, Alcohol intoxication Condition: Fair Referrals: NONE *PRIMARY CARE P,. [Primary Care Provider] - As per Instructions
--- NOTE | 2017-09-06 05:58 | CPEKG ---
Heart Rate: 102 RR Interval: 588 P-R Interval: 168 QRSD Interval: 86 QT Interval: 352 QTC Interval: 459 P [place]: 60 QRS [place]: 5 T Wave [place]: 30 EKG Severity - OTHERWISE NORMAL ECG - EKG Impression: SINUS TACHYCARDIA Electronically Signed By: Luis Ramirez 06-Sep-2017 06:50:26
[2017-09-06 06:07] LABS: PLATELET COUNT 431 10^3/uL (150-400)
[2017-09-06] MEDS ORDERED: LORazepam 1 MG TAB PO ONE ×2 (07:53→19:26)
[2017-09-06] MEDS ORDERED: LORazepam 2 MG/ML INJ IVP ONE (11:52)
--- NOTE | 2017-09-06 18:04 | ASMTCMCOM ---
CM Note CM Note Notes: Requested by Montserrat with [employer] to assist patient with having his cat, Lukla, taken care of while in the hospital. Patient might be admitted to [facility] and might be there for a few days. Patient doesn't have any friends in the area that could take care of the cat, and his brother lives out of the country, his sister lives local but she and the patient do not talk and she is not available to care for the cat. Called [facility] Animal [facility], spoke with Officer Smay who then referred the case to Officer Anusha. Officer Anusha spoke with patient and received verbal consent that he can enter pt's apt and [facility] at no charge until patient is released from the hospital. Per Officer Samy and Officer Anusha, patient will not be charged and be able to pickup driver Lukla when discharged from the hospital. Montserrat with [employer] updated and she will relay this information to Gely with [facility] who is assisting with pt's placement to [facility]. Case Mgmt available for further assistance if needed. Date Signed: 09/06/2017 06:03 PM Electronically Signed By:Angeline Arrington RN
[2017-09-06] MEDS ORDERED: LORazepam 1 MG TAB ONE (19:24)
[2017-09-06] MEDS ORDERED: MAGNESIUM HYDROXIDE 30 ML UDCUP PO PRN (22:44)
[2017-09-06] MEDS ORDERED: MAG HYDROX/AL HYDROX/SIMETH 30 ML UDCUP PO PRN (22:45)
[2017-09-07] MEDS: LORazepam 1 MG TAB PO PRN ×2 (05:47→09:10)
[2017-09-07] MEDS ORDERED: CLORAZEPATE 7.5 MG TAB PO ONE (14:22)
[2017-09-07] MEDS: chlordiazePOXIDE 25 MG CAP PO PRN (15:06)
--- NOTE | 2017-09-07 16:14 | BAPA ---
[f rep st] ADMISSION PSYCHIATRIC ASSESSMENT DATE OF SERVICE: 09/07/2017 CHIEF COMPLAINT: "I can't take it any more. I see rats eating my feet." HISTORY OF PRESENT ILLNESS: This is a 62-year-old man who presented to [facility] by ambulance on an M1 hold written by the [facility]. Patient is endorsing suicidal ideation with recent drug overdose. The patient has a history of schizoaffective disorder, bipolar type and alcohol dependence with several previous suicide attempts. The patient reports that he took 100 tablets of lisinopril 20 mg and 20 tablets of meloxicam 15 mg, and drank 20 beers and multiple whiskey shots over a 24 hour period. His vital signs in the ED were not consistent with someone who had taken that many lisinopril tablets so it is questionable whether not he took the amount of medications that he says he consumed. He is also not prescribed meloxicam and it is unclear where he would have gotten that from. His BAL in the ED was 163. The M1 hold states: "Respondent contacted 911 after taking between 90 and 200 lisinopril. Respondent says he took pills between 0400 and 0430 hours. Respondent states he is schizoaffective, bipolar type. Respondent has not taken medication for this in over a year. Respondent stated to me, 'I can not take it anymore. I see rats eating my feet.' Respondent was calm and breathing regularly when we contacted him." The patient told the ED group counselor that he had been feeling "very suicidal." His suicidality starts in the morning when he gets up, say that he feels dread and fear and that he has hallucinations of rats in the wilkerson , states he starts drinking to stop it and says that it works "for a little while." The patient says he wanted the metal numerical control programmer to arrest him last night because he would feel safer in correction. The patient says he has had a difficult time sleeping for the last month. He says that he has auditory hallucinations but just hears "gibberish." When this MD met with the patient on the inpatient [facility] Unit on [address], he was pleasant, cooperative, he was able to make direct eye contact. However, he was extremely tremulous, shaking and he was reporting worsening auditory, visual and tactile hallucinations. The MD did clarify that the patient states that he normally sees "vermin" but that they are "not aggressive and do not really bother me." He says that when he stops drinking or when he wakes up first thing in the morning before he has had his first drink that "the rats and other vermin get more aggressive." He also says that he can "feel them touching my skin and gnawing on my knees and feet." This MD was very concerned that the patient was going into DTs and he was sent to the ED. In the ED, he was evaluated and determined that he was not in DTs because he did not exhibit autonomic instability and was not hyperreflexive and states that he "has these hallucinations all the time," which is not what the patient told the psychiatrist on the unit. He said that the visual and tactile hallucinations he was experiencing are only this bad when he stops drinking or before he has his first drink in the morning. The ED administered 5 mg of Zyprexa, no IV fluids, no benzodiazepines, and he was sent back to the inpatient unit. When MD saw the patient again, he was less tremulous, he was eating lunch, he said that he did still feel anxious but his appetite was better and he was feeling less nauseous than he felt this morning. He was given a dose of Librium per his CIWA protocol. The patient states that he had been having visual hallucinations all morning but when the MD interacted with him during lunch time, he was not responding to any internal or external stimuli , and he was not fidgety or restless. He also was not distracted. He was able to focus and attend to what the MD was saying. PAST PSYCHIATRIC HISTORY: According to the patient, he has had numerous previous psychiatric admissions. His most recent psych admission was on . He was admitted on 03/30/2016 and discharged on 04/07/2016. Early in , he was at [facility]. 02/08 through 02/16/2016, he was at [facility]. He was also admitted to [facility] in 2014 and 06/2014. At the time of discharge in 2015, he was supposed to follow up with Dr. Diaz at [facility]. He states that he does not get along with Dr. Diaz because they primarily argue about medications and his lack of compliance with treatment. He did have a course of ECT with Dr. Pearson as an outpatient but discontinued due to noncompliance and ongoing alcohol abuse. The patient has previously been tried on multiple mood medications including Wellbutrin, Prozac, Abilify, Seroquel, Risperdal, Zyprexa, Geodon, trazodone, Prolixin, Haldol and amitriptyline. According to Dr. Pearson's discharge summary from 03/2016. The patient was admitted again with an elevated BAL of 230, noncompliance with treatment off his psychiatric medications and drinking. Patient wanted to be on naltrexone and said that he wanted to quit. He was cooperative but stated he did not want to Prolixin in any longer because it was causing him significant hand tremors, especially on his dominant right hand. He had been on Abilify in the past and said that he was compliant with that and he wanted to get on to a long-acting injectable form of Abilify. According to Dr. Pearson: "Due to his adamant objection to Prolixin and his statement that he would only take 1 antipsychotic, I agreed to proceed with the Abilify Maintena. This injection was given IM on 04/01/2016 without complication." At the time of discharge, the patient denied any suicidal ideation, displayed euthymic, stable and appropriate affect. He was discharged home because he did not pose a danger to himself or others and was not gravely disabled. He was at that time stating that he was willing to work on his recovery plan and that he was going to continue taking naltrexone. He was discharged on Ambien 10 mg p.o. at bedtime, naltrexone 25 mg p.o. twice daily, Abilify 15 mg daily, Cogentin 1 mg twice daily, Mobic 15 mg daily and lisinopril 20 mg daily. That was 2 years ago. He was to follow up with [facility]. Since that time this year, the patient has been seen in [facility] ED multiple times over the past 12 months, all alcohol related. He was seen March 19, 2017 for alcohol withdrawal. He was seen on 03/25/2017 for alcohol withdrawal related seizures. He was seen on 04/07/2017 also in alcohol withdrawal, 04/14/2017 and 04/16/2017, all for alcohol withdrawal. He was also seen on 05/16/2017 for severe alcohol withdrawal. He was seen on 05/29/2017 for alcohol withdrawal and he was seen on August 06, 2017, he was also in alcohol withdrawal. So the patient has not been compliant with his outpatient treatment. He has not followed up with [facility], has not been taking medications regularly and he has been drinking, not getting any alcohol related treatment, not in recovery and not going to AA. No longer taking naltrexone either. ALLERGIES: Patient is allergic to iodine oral and IV contrast. CURRENT MEDICATIONS: The patient is not currently taking any medications. It is unclear when the last time he actually was on medications. It may have been as long ago as 2015. PAST MEDICAL HISTORY: Significant for benign prostatic hypertrophy, hypertension and possible glaucoma. PAST SURGICAL HISTORY: Patient had a total right knee replacement in 2013. SOCIAL HISTORY: The patient was born and raised in [place]. He has a brother in [place] with whom he is close and it is his primary support system. He also has a brother in [place]. He receives Social Security Disability due to his mental health condition. He has never been . Has no children or dependents. SUBSTANCE ABUSE HISTORY: Patient has been drinking alcohol since the age of 14 with no prolonged periods of sobriety. He has a history of alcohol withdrawal seizures and as previously mentioned, has had numerous ER visits, particularly over the course of the last 12 months all alcohol withdrawal related. FAMILY HISTORY: Patient's mother was diagnosed with bipolar and he has a maternal aunt who committed suicide. His maternal grandmother was also an alcoholic. ADMISSION LABORATORY: White cell count was 5.66, hemoglobin to the 16.0, hematocrit 46.1, platelet count was 431. His sodium level was 143, potassium was 4.5, chloride 109, carbon dioxide 18, anion gap 16, BUN 11, creatinine 0.9, glucose 83, calcium 9.1. His total bilirubin 0.5. AST 61, ALT 79, both of those transaminases are elevated. Alkaline phosphatase is 92, total protein 7.9 , albumin 4.9. Blood alcohol level in the ED was 163, negative for all other substances of abuse, and acetaminophen and salicylate levels were both undetected. MENTAL STATUS EXAMINATION: This is a well-developed 62-year-old man who looks older than his chronological age. First time I saw him this morning, he was tremulous, shaking and complaining of visual hallucinations. The second time I saw him, he was eating lunch. He was not complaining of auditory or visual or tactile hallucinations though he was saying that he was experiencing anxiety. He was pleasant, calm, cooperative. He was alert oriented x4. His speech was fluent and spontaneous. He interacted appropriately with this interviewer. There is no evidence of psychosis other than his self report. There was no evidence of responding to internal or external stimuli. He denied feeling paranoid at the current time. He also denied having any thoughts about suicide. He had no thoughts, plans or intents to hurt himself or anyone else even though that was the presenting symptom into the ED last night. His intellectual function appears to be below average based upon educational attainment, history and vocabulary. IMPRESSION: 1. Schizoaffective disorder, bipolar type, most recently depressed. 2. Alcohol use disorder, severe. 3. History of cocaine use disorder, unknown severity. 4. Psychosocial stressors include lack of social support, unemployed, living on disability, chronic severe mental illness, ongoing alcohol dependence and long history of noncompliance with treatment. PLAN: 1. Admit patient to Behavioral Health Services inpatient unit on an M1 hold. 2. Monitor closely for safety and on suicide precautions. Patient is currently able to contract for safety. Denies thoughts, plans or intents to hurt himself. 3. Will initiate an alcohol detox protocol including q.4 hour vitals, CIWA protocol. Librium to be administered per the CIWA protocol but I will also place him on a Tranxene scheduled taper based upon his history of severe alcohol withdrawals and alcohol withdrawal related seizures. The Tranxene taper will be 30 mg once and 30 mg twice daily x48 hours followed by 15 mg x2 days and then 7.5 mg x2 days. Taper can be discontinued once patient is stable and not reporting any symptoms. If patient leaves the hospital, may need to complete the taper at home. This will be evaluated on a daily basis and the protocol will be adjusted as needed. He will have Librium available as well as multivitamin, folate and thiamin, Phenergan as needed and other comfort medications. 4. Will wait to initiate any type of psychotropic medications until the patient is over the worst of his alcohol withdrawal so that we can establish what symptoms are due to ongoing psychotic disorder and what symptoms are related to his alcohol withdrawal. The nature of his dependence on alcohol and what sounds like ongoing alcohol withdrawal related visual hallucinations at home, the way he describes the hallucinations indicating that he sees rats on his wilkerson and feels tactile hallucinations of rats touching his skin or gnawing at his ankles which is always worse in the morning before he has his first drink and always worse when he goes for prolonged periods of time between drinks , indicates that his hallucinations may be more affected by his alcohol use than by any underlying chronic psychotic disorder. Records indicate that he does have a chronic schizoaffective disorder but that it is more related to jared rather than to florid psychosis, so we will continue to monitor and observe him on the unit to sort of identify which of those things is more prevalent in his pathology. Based upon treatments that have been effective for the patient in the past, I think being on an antipsychotic like Abilify or any long-acting injectable antipsychotic medication is reasonable. However, the patient has shown that when he does get treated and stabilized inpatient, he is never consistent with outpatient care and does not follow through and stay on medication or keep his appointments with prescribers. He also has been unwilling over the course of the last 2 years to engage in ongoing chemical dependency treatment despite saying that that was what he was going to do when he left the hospital both in January and then March 2016. It would be advisable for the patient to be on naltrexone or to be on Vivitrol injectable naltrexone as a treatment for his alcohol dependence. However, those medications have not shown to be effective unless patients are compliant with some type of 12 step program or similar type of recovery program where they are getting regular contact with providers who can monitor them for compliance and hold him accountable. 5. The patient will engage in group therapy and participate in milieu activities. We will continue to monitor and observe him both for alcohol withdrawal related symptoms as well as for psychotic and mood related symptoms. 6. Estimated length of stay is 5 to 7 days. /[id number]/MODL MTDD
[2017-09-07] MEDS ORDERED: PNEUMOCOCCAL 0.5ML VACCINE VIAL IM ONE (17:04)
[2017-09-07] MEDS ORDERED: ACETAMINOPHEN 500 MG TAB PO PRN (17:58)
[2017-09-07] MEDS: CLORAZEPATE 7.5 MG TAB PO SCH (19:58)
--- NOTE | 2017-09-07 22:41 | BCON ---
[f rep st] BEHAVIORAL HEALTH CONSULTATION INTERNAL MEDICINE CONSULTATION DATE OF CONSULTATION: 09/07/2017 REFERRING PHYSICIAN: Dr. Hawkins REASON FOR REFERRAL: Medical clearance for inpatient behavioral [facility] stay. HISTORY OF PRESENT ILLNESS: This patient presented to the [facility] Emergency Department yesterday reporting an overdose on 100 tablets of lisinopril and multiple tablets of meloxicam. Emergency department evaluation included serial labs to ensure no renal compromise and monitoring of vitals to ensure no bradycardia or hypotension. He had an EKG which was unremarkable and an abdominal x-ray which showed chronic left nephrolithiasis with no change from imaging of 2010, and no pill bezoar. He was evaluated by the Mental Health Team and admitted for further psychiatric care. He is currently without acute complaints other than feeling tired. He was returned to the emergency department by Psychiatry out of concern that he might be going into delirium tremens. However, he was not hyperreflexic and had no signs of autonomic instability, so he was returned to inpatient Behavioral Health. PAST MEDICAL HISTORY: 1. Hepatitis C which he reports has been fully treated with interferon. 2. Prostate cancer. 3. Hypertension. 4. Right knee replacement in 2013. 5. Remote TBI with cognitive impairment. 6. Alcohol use disorder. 7. Schizoaffective disorder. 8. Renal failure. 9. Epididymitis. 10. Dental abscess. PAST SURGICAL HISTORY: He has had a knee replacement. MEDICATIONS: He was prescribed lisinopril. ALLERGIES: There is an allergy listed to iodinated contrast material. SOCIAL HISTORY: He reports he is on disability income. He has his own apartment. He is a chronic alcohol user. He is a nonsmoker. FAMILY HISTORY: Noncontributory. REVIEW OF SYSTEMS: He reports fatigue and says he has not slept for 40 days. He denies headache, vision changes, difficulty swallowing, weakness, numbness or tingling of the extremities. He denies chest pain or palpitations. He says he has a cough, and occasionally it is productive. He denies dyspnea. He denies fevers or chills. He says he has had some sweats and tremors. He denies vomiting, constipation, or diarrhea. He has had some nausea. He reports he has knee pain. Otherwise, a 10-point review of systems is negative. PHYSICAL EXAM: VITALS: Blood pressure is 130/95, heart rate is 82, respiratory rate is 16, oxygen saturation is 93% on room air. Temperature is 36.3 degrees centigrade. His weight is 81.6 kg for a body mass index of 26.6. GENERAL: This is a well-nourished well-developed slightly overweight man, well- groomed, dressed in hospital garb, lying in bed, easily awakened, cooperative, and in no acute distress. HEENT: Extraocular movements are intact. Pupils are equal, round, and reactive to light. Mucous membranes are moist. Dentition is in good condition. NECK: Supple. HEART: There is a regular rate and rhythm with no murmurs, rubs, or gallops. LUNGS: Clear to auscultation bilaterally. ABDOMEN: Benign. NEUROLOGIC: He is alert. Orientation was not checked. Cranial nerves 2 through 12 are grossly intact. There is no focal weakness. Sensation is intact to light touch. He has an extension tremor. DATA REVIEWED: Laboratory studies from the emergency department: CBC was overall within normal limits; he had an elevated platelet count at 431. Serum chemistry initially showed hypernatremia with a sodium of 146, but subsequently sodium normalized. He initially had an anion gap, but that normalized. Carbon dioxide was slightly low on the second determination at 18. Liver function tests showed mildly elevated AST and ALT at 61 and 79; otherwise, liver function tests were within normal limits. Toxicology screen in the serum was negative for salicylates or acetaminophen. Ethyl alcohol level was 163 mg/dL. Urine toxicology screen was negative for any substances of abuse. ASSESSMENT AND RECOMMENDATIONS: 1. Mental health issues. Pending further evaluation and management per Psychiatry and the Mental Health Team. 2. Alcohol use disorder. 3. Alcohol withdrawal is appropriately treated with benzodiazepines. 4. History of hypertension. It is conceivable that he has been hypertensive due to his alcohol use and that once he completes alcohol withdrawal, he will not be hypertensive. Advise monitoring vitals. If alcohol withdrawal is otherwise adequately treated and he remains hypertensive, would consider resuming lisinopril at his outpatient dose. 5. Nephrolithiasis. Stable and asymptomatic. 6. Knee pain. I have prescribed acetaminophen at less than 2 g a day consistent with hepatic dysfunction, though he reports that his hepatitis has been treated, and other than mildly elevated transaminases consistent with alcohol intoxication, he shows no signs or symptoms of liver disease. I see no medical contraindications to this patient's continued stay on the inpatient behavioral health unit or to any psychiatric medications or procedures. Thank you very much for including me in the care of this patient, and please do not hesitate to contact me or the hospitalist service should there be need for further medical evaluation. /[id number]/MODL MTDD
[2017-09-08] MEDS: chlordiazePOXIDE 25 MG CAP PO PRN ×2 (00:08→04:34)
[2017-09-08] MEDS: CLORAZEPATE 7.5 MG TAB PO SCH ×2 (11:04→19:28)
[2017-09-08] MEDS: FOLIC ACID 1 MG TAB PO SCH (11:07)
[2017-09-08] MEDS: MULTIVITAMINS 1 EACH TAB PO SCH (11:08)
[2017-09-08] MEDS: NICOTINE 21 MG/24 HR PATCH TD SCH ×2 (11:29→16:24)
--- NOTE | 2017-09-08 16:15 | SOAPPROG ---
SOAP Progress Note Assessment/Plan: Assessment: 62 yo with prior h/o alcohol dependence, schizoaffective disorder, bipolar type with psychotic features. Patient was admitted after he claimed to OD on Lisinopril and Meloxicam. However, ED physician noted that patient's VS were not consistent with Lisinopril OD and patient hasn't been prescribed Meloxicam since his d/c from [facility] in 2016. He has not been seen by anyone at [facility] in 2 years and has not been compliant with treatment and has no way to get meds. He has been seen in [facility] ED > 12 times in past 1-07/26 for alcohol intoxication or w /d related sxs. Plan: 09/08/17 16:11 1. Patient appeared intoxicated from benzos when MD met with him. He had received Tranxene 30mg in AM. He was reported DOWLING, tremors, visual/tactile hallucinations and extreme anxiety. However, his VS were BP 123/87, HR 83, Temp 36.6. Despite endorsing VH, every time this MD has met with patient, he is always able to sit calmly without fidgeting in NAD and maintain consistent eye contact with no visible signs of distraction and no observable responses to external/internal stimuli. This presentation is not consistent with someone who claims to see "rats climbing the wilkerson everywhere" and feels "rats biting at my ankles and chewing my skin." Patient doesn't flinch, move, startle or react in any way like he is experiencing VH/TH. Despite his self-report of physical w/d sxs, his vital signs remain consistently stable throughout the day. 2. Based on patient's presentation this AM: sedated, heavy eyelids, difficulty keeping eyes open, slurred speech, slowed speech, will reduce the amount of benzo he is receiving and shorten the duration of his taper. Will start 15mg PO BID x 3 doses, then 7.5mg PO BID x 2 doses and then 7.5mg PO Daily x 1 dose. Will also convert his Librium PRN per CIWA protocol to similar protocol with Tranxene as follows: For CIWA 10-20 with DBP > 110, HR > 100 or Temp > 38.6 C, give Tranxene 7.5mg PO Q4HRS, For CIWA > 20 with DBP > 110, HR > 100 or Temp > 38.6 C, give Tranxene 15mg PO Q4HRS. Will re-evaluate condition in AM. 3. At this point, do not recommend starting patient on antipsychotic d/t unreliability of his report of psychotic sxs. Based on observations there is no evidence of paranoia, hallucinations, delusions, bizarre thoughts, IOR or RIS/ RES. It's likely that any visual and tactile disturbances patient is experiencing may be most directly related to alcohol w/d, and he is currently being treated adequately for any w/d related sxs. If more compelling evidence of psychosis emerges, will begin to treat for that as well. 4. M1 expires tomorrow 5. MD asked patient if he'd be willing to follow up with providers at [facility] if he was given an intake appointment there. Patient gave contradictory answer. He said he went there last Tuesday, and "they didn't do anything for me....they're worthless." Another time he said he would go there b/c "I don't have any other choice, do I?" MD asked if patient wants to be treated, he said "Of course I do , that's why I drink." But MD reminded him he was given referral to [facility] when he left [facility] in 03/2016 and didn't go to his appointment, but continued to drink "a lot" based on ED reports. He said, "well every schizophrenic drinks, wouldn't you?" Subjective: Met with patient, reviewed chart and d/w staff. Patient presented as intoxicated. He was slurring his speech and appeared heavy lidded and sedated. He was also very irritable, blaming MD for "not helping me" and for "sending me to ED, what was that all about?" MD attempted to explain concerns for DTs based on patient's h/o withdrawal related seizures. Patient seemed to dismiss this, and said, "you're not doing anything to help...you're just like the folks at [facility]." Patient then goes on long tirade about how staff at [facility] are "worthless" and "don't do their jobs." Patient denies any SI/HI, says he has no intent or plan to hurt himself or anyone else and will "leave here when my hold is up." Objective: Vital Signs Temp Pulse Resp BP Pulse Ox 36.3 C 85 12 136/81 H 96 09/08/17 13:42 09/08/17 13:42 09/08/17 13:42 09/08/17 13:42 09/08/17 13:42 MSE: Affect: Irritable Mood: "Terrible" TP: Tangential, disorganized TC: Denies any SI/HI, no AH/VH Insight/Judgment: Impaired - Time Spent With Patient Time Spent With Patient: 20" - Pending Discharge Pending Discharge Within 24 Hours: No Pending Discharge Within 48 Hours: No ICD10 Worksheet Patient Problems: Problems Problem Status Onset Alcohol intoxication Acute Suicidal ideation Acute Acidosis Acute Acute delirium Acute Alcohol abuse Acute Alcohol dependence Acute Alcoholism Acute Hepatitis C Acute Hypertension Acute Noncompliance with medications Acute Osteoarthritis of knee Acute Polysubstance abuse Acute Renal failure Acute Schizophrenia Acute Suicidal behavior Acute Prostate cancer Chronic
[2017-09-09] MEDS: CLORAZEPATE 7.5 MG TAB PO PRN ×2 (00:11→14:25)
[2017-09-09] MEDS ORDERED: CLORAZEPATE 7.5 MG TAB PO SCH (09:00)
[2017-09-09] MEDS: NICOTINE 21 MG/24 HR PATCH TD SCH (09:35)
[2017-09-09] MEDS: CLORAZEPATE 7.5 MG TAB PO SCH ×2 (09:36→20:37)
[2017-09-09] MEDS: FOLIC ACID 1 MG TAB PO SCH (09:36)
[2017-09-09] MEDS: MULTIVITAMINS 1 EACH TAB PO SCH (09:37)
[2017-09-09] MEDS: IBUPROFEN 200 MG TAB PO PRN (10:10)
--- NOTE | 2017-09-09 15:19 | SOAPPROG ---
SOAP Progress Note Assessment/Plan: Assessment: 62 yo with prior h/o alcohol dependence, schizoaffective disorder, bipolar type with psychotic features. Patient was admitted after he claimed to OD on Lisinopril and Meloxicam. However, ED physician noted that patient's VS were not consistent with Lisinopril OD and patient hasn't been prescribed Meloxicam since his d/c from [facility] in 2016. He has not been seen by anyone at [facility] in 2 years and has not been compliant with treatment and has no way to get meds. He has been seen in [facility] ED > 12 times in past 1-07/26 for alcohol intoxication or w /d related sxs. Plan: 09/08/17 16:11 1. Patient appeared intoxicated from benzos when MD met with him. He had received Tranxene 30mg in AM. He was reported DOWLING, tremors, visual/tactile hallucinations and extreme anxiety. However, his VS were BP 123/87, HR 83, Temp 36.6. Despite endorsing VH, every time this MD has met with patient, he is always able to sit calmly without fidgeting in NAD and maintain consistent eye contact with no visible signs of distraction and no observable responses to external/internal stimuli. This presentation is not consistent with someone who claims to see "rats climbing the wilkerson everywhere" and feels "rats biting at my ankles and chewing my skin." Patient doesn't flinch, move, startle or react in any way like he is experiencing VH/TH. Despite his self-report of physical w/d sxs, his vital signs remain consistently stable throughout the day. 2. Based on patient's presentation this AM: sedated, heavy eyelids, difficulty keeping eyes open, slurred speech, slowed speech, will reduce the amount of benzo he is receiving and shorten the duration of his taper. Will start 15mg PO BID x 3 doses, then 7.5mg PO BID x 2 doses and then 7.5mg PO Daily x 1 dose. Will also convert his Librium PRN per CIWA protocol to similar protocol with Tranxene as follows: For CIWA 10-20 with DBP > 110, HR > 100 or Temp > 38.6 C, give Tranxene 7.5mg PO Q4HRS, For CIWA > 20 with DBP > 110, HR > 100 or Temp > 38.6 C, give Tranxene 15mg PO Q4HRS. Will re-evaluate condition in AM. 3. At this point, do not recommend starting patient on antipsychotic d/t unreliability of his report of psychotic sxs. Based on observations there is no evidence of paranoia, hallucinations, delusions, bizarre thoughts, IOR or RIS/ RES. It's likely that any visual and tactile disturbances patient is experiencing may be most directly related to alcohol w/d, and he is currently being treated adequately for any w/d related sxs. If more compelling evidence of psychosis emerges, will begin to treat for that as well. 4. M1 expires tomorrow 5. MD asked patient if he'd be willing to follow up with providers at [facility] if he was given an intake appointment there. Patient gave contradictory answer. He said he went there last Tuesday, and "they didn't do anything for me....they're worthless." Another time he said he would go there b/c "I don't have any other choice, do I?" MD asked if patient wants to be treated, he said "Of course I do , that's why I drink." But MD reminded him he was given referral to [facility] when he left [facility] in 03/2016 and didn't go to his appointment, but continued to drink "a lot" based on ED reports. He said, "well every schizophrenic drinks, wouldn't you?" 09/09/17 15:05 1. and CCCornell, met with patient. Patient presented confused at times. He is less irritable and belligerent than yesterday, and does not appear over- medicated. He is speaking in normal rate and tone of voice. No slurring. But he does continue to insist that he is experiencing "constant" VH of "rats crawling on me and everywhere." Yet, as MD reported yesterday, patient gives no outwardly observable indication that he is having such experiences. He does not fidget, move, dart his gaze, shift focus from MD or CC, or swat away perceived hallucinations. This is an extremely unusual way for someone to present who is experiencing VH/TH of such intensity as patient reports. Patient also says he has been sleeping "terrible." He says, "It's awful, I haven't slept in 43 days. " He reports "nightmares" and "scary dreams," which wouldn't be possible unless patient was asleep. Staff are also reporting patient slept 7 hrs last night. Patient seems to be completely unreliable historian, which makes MD wonder if he is malingering. At one point in conversation, patient states he "drank bleach " and took "100 Lisinopril" prior to ED admission. Patient never mentioned bleach in any previous encounters with medical staff (EMS, ED staff or psych staff). He also previously reported taking 20 Lisinopril, and ED evaluation was not consistent with OD on that many anti-hypertensive meds. MD thinks this might be indication that patient is confabulating. Patient admits to MD he is having "memory issues" and feels "confused" and has "hard time thinking clearly. 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 Will check Mg, LFTs and NH4 in AM. 2. Patient would like to take Abilify again. He was given this med during last admission in 03/2016 and started on IM Abilify Maintenna, though he never followed up with P prescribers for any meds after his hospital stay. MD explained risks associated with combining psychotropic, including Abilify, with alcohol. MD also explained that meds are not effective if patient doesn't see OP prescriber to have medications monitored and adjusted appropriately. Patient verbalized his understanding but did not agree he would stay on meds. He abruptly changed topic of conversation and requested Adderall. MD explained why stimulant would not be appropriate d/t risk of dependency and worsening psychotic sxs. Patient started perseverating on stimulant prescription and forgot all about wanting something to treat his hallucinations. 3. Patient completely minimizes his alcohol use and its effect on his mood, cognition, judgment and ability to function. He was not willing to commit to SA treatment, even though MD strongly recommended Naltrexone/Campral as well as outpatient services including CAC and/or IOP. It would not be reasonable to prescribe Antabuse for patient who is not willing to commit to treatment and has long h/o noncompliance with appointments and medications. 4. Patient currently on STC. Will likely d/c on Tuesday back to his apartment. 5. Intake appt with P on 09/16/17. Subjective: Met with patient, reviewed chart and d/w staff. MD and CC, Cornell, met with patient. Patient presented confused at times. He is less irritable and belligerent than yesterday, and does not appear over-medicated. He is speaking in normal rate and tone of voice. No slurring. But he does continue to insist that he is experiencing "constant" VH of "rats crawling on me and everywhere." Yet, as MD reported yesterday, patient gives no outwardly observable indication that he is having such experiences. He does not fidget, move, dart his gaze, shift focus from MD or CC, or swat away perceived hallucinations. This is an extremely unusual way for someone to present who is experiencing VH/TH of such intensity as patient reports. Patient also says he has been sleeping "terrible. " He says, "It's awful, I haven't slept in 43 days." He reports "nightmares" and "scary dreams," which wouldn't be possible unless patient was asleep. Staff are also reporting patient slept 7 hrs last night. Patient seems to be completely unreliable historian, which makes MD wonder if he is malingering. At one point in conversation, patient states he "drank bleach" and took "100 Lisinopril" prior to ED admission. Patient never mentioned bleach in any previous encounters with medical staff (EMS, ED staff or psych staff). He also previously reported taking 20 Lisinopril, and ED evaluation was not consistent with OD on that many anti-hypertensive meds. MD thinks this might be indication that patient is confabulating. Patient admits to MD he is having "memory issues " and feels "confused" and has "hard time thinking clearly." It's like patient has hepatic encephalopathy from chronic alcohol use. Will check Mg, LFTs and NH4 in AM. Patient would like to take Abilify again. He was given this med during last admission in 03/2016 and started on IM Abilify Maintenna, though he never followed up with P prescribers for any meds after his hospital stay. explained risks associated with combining psychotropic, including Abilify, with alcohol. MD also explained that meds are not effective if patient doesn't see OP prescriber to have medications monitored and adjusted appropriately. Patient verbalized his understanding but did not agree he would stay on meds. He abruptly changed topic of conversation and requested Adderall. MD explained why stimulant would not be appropriate d/t risk of dependency and worsening psychotic sxs. Patient started perseverating on stimulant prescription and forgot all about wanting something to treat his hallucinations. Objective: Vital Signs Temp Pulse Resp BP Pulse Ox 36.3 C 113 H 12 133/97 H 97 09/09/17 14:16 09/09/17 14:16 09/09/17 14:16 09/09/17 14:16 09/09/17 14:16 MSE: Affect: Euthymic, briefly irritable but less than yesterday Mood: "OK" TP : Circumstantial, disorganized TC: Denies any SI/HI, no longer wants to "" , some paranoia about his apartment managers wanting to "evict me" reports VH/ TH, but no evidence that these are present Insight/Judgment: Impaired - Time Spent With Patient Time Spent With Patient: 25" - Pending Discharge Pending Discharge Within 24 Hours: No Pending Discharge Within 48 Hours: No ICD10 Worksheet Patient Problems: Problems Problem Status Onset Alcohol intoxication Acute Suicidal ideation Acute Acidosis Acute Acute delirium Acute Alcohol abuse Acute Alcohol dependence Acute Alcoholism Acute Hepatitis C Acute Hypertension Acute Noncompliance with medications Acute Osteoarthritis of knee Acute Polysubstance abuse Acute Renal failure Acute Schizophrenia Acute Suicidal behavior Acute Prostate cancer Chronic
[2017-09-09] MEDS: THIAMINE HCL 100 MG TAB PO SCH (20:37)
[2017-09-09] MEDS: MELATONIN 3 MG TAB PO PRN (23:26)
[2017-09-10] MEDS: THIAMINE HCL 100 MG TAB PO SCH (08:05)
[2017-09-10] MEDS: NICOTINE 21 MG/24 HR PATCH TD SCH (08:06)
[2017-09-10] MEDS: MULTIVITAMINS 1 EACH TAB PO SCH (08:06)
[2017-09-10] MEDS: CLORAZEPATE 7.5 MG TAB PO SCH ×2 (08:06→20:56)
[2017-09-10] MEDS: FOLIC ACID 1 MG TAB PO SCH (08:06)
--- NOTE | 2017-09-10 12:59 | SOAPPROG ---
SOAP Progress Note Assessment/Plan: Assessment: 62 yo with prior h/o alcohol dependence, schizoaffective disorder, bipolar type with psychotic features. Patient was admitted after he claimed to OD on Lisinopril and Meloxicam. However, ED physician noted that patient's VS were not consistent with Lisinopril OD and patient hasn't been prescribed Meloxicam since his d/c from [facility] in 2016. He has not been seen by anyone at [facility] in 2 years and has not been compliant with treatment and has no way to get meds. He has been seen in [facility] ED > 12 times in past 1-07/26 for alcohol intoxication or w /d related sxs. Plan: 09/08/17 16:11 1. Patient appeared intoxicated from benzos when MD met with him. He had received Tranxene 30mg in AM. He was reported DOWLING, tremors, visual/tactile hallucinations and extreme anxiety. However, his VS were BP 123/87, HR 83, Temp 36.6. Despite endorsing VH, every time this MD has met with patient, he is always able to sit calmly without fidgeting in NAD and maintain consistent eye contact with no visible signs of distraction and no observable responses to external/internal stimuli. This presentation is not consistent with someone who claims to see "rats climbing the wilkerson everywhere" and feels "rats biting at my ankles and chewing my skin." Patient doesn't flinch, move, startle or react in any way like he is experiencing VH/TH. Despite his self-report of physical w/d sxs, his vital signs remain consistently stable throughout the day. 2. Based on patient's presentation this AM: sedated, heavy eyelids, difficulty keeping eyes open, slurred speech, slowed speech, will reduce the amount of benzo he is receiving and shorten the duration of his taper. Will start 15mg PO BID x 3 doses, then 7.5mg PO BID x 2 doses and then 7.5mg PO Daily x 1 dose. Will also convert his Librium PRN per CIWA protocol to similar protocol with Tranxene as follows: For CIWA 10-20 with DBP > 110, HR > 100 or Temp > 38.6 C, give Tranxene 7.5mg PO Q4HRS, For CIWA > 20 with DBP > 110, HR > 100 or Temp > 38.6 C, give Tranxene 15mg PO Q4HRS. Will re-evaluate condition in AM. 3. At this point, do not recommend starting patient on antipsychotic d/t unreliability of his report of psychotic sxs. Based on observations there is no evidence of paranoia, hallucinations, delusions, bizarre thoughts, IOR or RIS/ RES. It's likely that any visual and tactile disturbances patient is experiencing may be most directly related to alcohol w/d, and he is currently being treated adequately for any w/d related sxs. If more compelling evidence of psychosis emerges, will begin to treat for that as well. 4. M1 expires tomorrow 5. MD asked patient if he'd be willing to follow up with providers at [facility] if he was given an intake appointment there. Patient gave contradictory answer. He said he went there last Tuesday, and "they didn't do anything for me....they're worthless." Another time he said he would go there b/c "I don't have any other choice, do I?" MD asked if patient wants to be treated, he said "Of course I do , that's why I drink." But MD reminded him he was given referral to [facility] when he left [facility] in 03/2016 and didn't go to his appointment, but continued to drink "a lot" based on ED reports. He said, "well every schizophrenic drinks, wouldn't you?" 09/09/17 15:05 1. and CCCornell, met with patient. Patient presented confused at times. He is less irritable and belligerent than yesterday, and does not appear over- medicated. He is speaking in normal rate and tone of voice. No slurring. But he does continue to insist that he is experiencing "constant" VH of "rats crawling on me and everywhere." Yet, as MD reported yesterday, patient gives no outwardly observable indication that he is having such experiences. He does not fidget, move, dart his gaze, shift focus from MD or CC, or swat away perceived hallucinations. This is an extremely unusual way for someone to present who is experiencing VH/TH of such intensity as patient reports. Patient also says he has been sleeping "terrible." He says, "It's awful, I haven't slept in 43 days. " He reports "nightmares" and "scary dreams," which wouldn't be possible unless patient was asleep. Staff are also reporting patient slept 7 hrs last night. Patient seems to be completely unreliable historian, which makes MD wonder if he is malingering. At one point in conversation, patient states he "drank bleach " and took "100 Lisinopril" prior to ED admission. Patient never mentioned bleach in any previous encounters with medical staff (EMS, ED staff or psych staff). He also previously reported taking 20 Lisinopril, and ED evaluation was not consistent with OD on that many anti-hypertensive meds. MD thinks this might be indication that patient is confabulating. Patient admits to MD he is having "memory issues" and feels "confused" and has "hard time thinking clearly. 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 Will check Mg, LFTs and NH4 in AM. 2. Patient would like to take Abilify again. He was given this med during last admission in 03/2016 and started on IM Abilify Maintenna, though he never followed up with P prescribers for any meds after his hospital stay. MD explained risks associated with combining psychotropic, including Abilify, with alcohol. MD also explained that meds are not effective if patient doesn't see OP prescriber to have medications monitored and adjusted appropriately. Patient verbalized his understanding but did not agree he would stay on meds. He abruptly changed topic of conversation and requested Adderall. MD explained why stimulant would not be appropriate d/t risk of dependency and worsening psychotic sxs. Patient started perseverating on stimulant prescription and forgot all about wanting something to treat his hallucinations. 3. Patient completely minimizes his alcohol use and its effect on his mood, cognition, judgment and ability to function. He was not willing to commit to SA treatment, even though MD strongly recommended Naltrexone/Campral as well as outpatient services including CAC and/or IOP. It would not be reasonable to prescribe Antabuse for patient who is not willing to commit to treatment and has long h/o noncompliance with appointments and medications. 4. Patient currently on STC. Will likely d/c on Tuesday back to his apartment. 5. Intake appt with [facility] on 09/16/17. 09/10/17 12:51 1. Patient presents calmer, less anxiety and more congenial in conversation, less irritable and labile. He says he still feels "confused" and is having trouble "remembering things." He still has slight tremor, but denies N/V, sweats , DOWLING, dizziness. His CIWA was only a 3 this AM, significantly decreased from first 48 hrs of his admission. VS remain stable. Despite stating that he "didn' t sleep at all last night," staff confirm patient slept 4 hours and were able to verify patient was snoring frequently during night. 2. Mg, LFTs and ammonia level were all WNL. His AST and ALT which were slightly elevated at admission have come down to normal range. 3. Recommend Naltrexone and/or Campral prior to d/c. Patient would be good candidate for Vivitrol injection. So far, he has denied having a problem with alcohol, tell MD and CC, "I'm not in withdrawal." 4. MD explained reason for not prescribing an atypical antipsychotic at this point. For several reasons: -Waiting for patient to complete w/d, and assess the need and potential risks vs benefits at that time -Serious doubts have been raised based on staff/MD monitoring of patient whether he actually has the type of psychotic sxs he reports - see notes from other days about inconsistency between patient self-report of sxs and outwardly observable behaviors -Concern about patient's h/o noncompliance with meds and treatment and that fact that after every admission and ED visit he has gone back to drinking heavily immediately, MD has explained the serious potential adverse effects from drinking Alcohol while taking psychotropic meds, but patient says, " alcohol is not a problem for me" 5. Patient says he will see esthetician/spa coordinator at [facility] on 09/16/17, but says he "won't go there" if "I have to see Dr. Diaz." Subjective: Met with patient, reviewed chart and d/w staff. Patient presents calmer, less anxiety and more congenial in conversation, less irritable and labile. He says he still feels "confused" and is having trouble "remembering things." He still has slight tremor, but denies N/V, sweats, DOWLING, dizziness. His CIWA was only a 3 this AM, significantly decreased from first 48 hrs of his admission. VS remain stable. Despite stating that he "didn't sleep at all last night," staff confirm patient slept 4 hours and were able to verify patient was snoring frequently during night. Patient shows no sign of paranoia, no IOR, and no observable response to internal or external stimuli despite insisting that he sees rats "constantly." observed patient for at least 20 minutes during art therapy group. He sat calmly in chair painting with watercolors and listening to music. He did not demonstrate fidgeting, restlessness, distraction. At no time was his gaze distracted and he did not ever startle. He made eye contact appropriately, conversed with peers, engaged in the activity without any interruption in his focus or attention. He denies any SI/HI. Objective: Vital Signs Temp Pulse Resp BP Pulse Ox 36.6 C 95 16 127/89 H 98 09/10/17 08:00 09/10/17 08:00 09/10/17 08:00 09/10/17 08:00 09/10/17 08:00 MSE: Affect: Euthymic, less irritable Mood: "OK" TP: Disorganized, confused TC: Endorses VH, but no evidence of RIS/RES, no other psychotic sxs present Insight/Judgment: Poor - Time Spent With Patient Time Spent With Patient: 25" - Pending Discharge Pending Discharge Within 24 Hours: No Pending Discharge Within 48 Hours: No ICD10 Worksheet Patient Problems: Problems Problem Status Onset Alcohol intoxication Acute Suicidal ideation Acute Acidosis Acute Acute delirium Acute Alcohol abuse Acute Alcohol dependence Acute Alcoholism Acute Hepatitis C Acute Hypertension Acute Noncompliance with medications Acute Osteoarthritis of knee Acute Polysubstance abuse Acute Renal failure Acute Schizophrenia Acute Suicidal behavior Acute Prostate cancer Chronic
[2017-09-10] MEDS: IBUPROFEN 200 MG TAB PO PRN (16:54)
[2017-09-11] MEDS: MELATONIN 3 MG TAB PO PRN ×2 (00:43→23:58)
[2017-09-11 06:08] VITALS: PULSE 88
[2017-09-11] MEDS: MULTIVITAMINS 1 EACH TAB PO SCH (08:38)
[2017-09-11] MEDS: FOLIC ACID 1 MG TAB PO SCH (08:39)
[2017-09-11] MEDS: THIAMINE HCL 100 MG TAB PO SCH (08:39)
[2017-09-11] MEDS: NICOTINE 21 MG/24 HR PATCH TD SCH (08:39)
[2017-09-11] MEDS ORDERED: CLORAZEPATE 7.5 MG TAB PO SCH ×2 (09:00)
--- NOTE | 2017-09-11 15:01 | SOAPPROG ---
SOAP Progress Note Assessment/Plan: Assessment: 62 yo with prior h/o alcohol dependence, schizoaffective disorder, bipolar type with psychotic features. Patient was admitted after he claimed to OD on Lisinopril and Meloxicam. However, ED physician noted that patient's VS were not consistent with Lisinopril OD and patient hasn't been prescribed Meloxicam since his d/c from [facility] in 2016. He has not been seen by anyone at [facility] in 2 years and has not been compliant with treatment and has no way to get meds. He has been seen in [facility] ED > 12 times in past 1-07/26 for alcohol intoxication or w /d related sxs. Plan: 09/08/17 16:11 1. Patient appeared intoxicated from benzos when MD met with him. He had received Tranxene 30mg in AM. He was reported DOWLING, tremors, visual/tactile hallucinations and extreme anxiety. However, his VS were BP 123/87, HR 83, Temp 36.6. Despite endorsing VH, every time this MD has met with patient, he is always able to sit calmly without fidgeting in NAD and maintain consistent eye contact with no visible signs of distraction and no observable responses to external/internal stimuli. This presentation is not consistent with someone who claims to see "rats climbing the wilkerson everywhere" and feels "rats biting at my ankles and chewing my skin." Patient doesn't flinch, move, startle or react in any way like he is experiencing VH/TH. Despite his self-report of physical w/d sxs, his vital signs remain consistently stable throughout the day. 2. Based on patient's presentation this AM: sedated, heavy eyelids, difficulty keeping eyes open, slurred speech, slowed speech, will reduce the amount of benzo he is receiving and shorten the duration of his taper. Will start 15mg PO BID x 3 doses, then 7.5mg PO BID x 2 doses and then 7.5mg PO Daily x 1 dose. Will also convert his Librium PRN per CIWA protocol to similar protocol with Tranxene as follows: For CIWA 10-20 with DBP > 110, HR > 100 or Temp > 38.6 C, give Tranxene 7.5mg PO Q4HRS, For CIWA > 20 with DBP > 110, HR > 100 or Temp > 38.6 C, give Tranxene 15mg PO Q4HRS. Will re-evaluate condition in AM. 3. At this point, do not recommend starting patient on antipsychotic d/t unreliability of his report of psychotic sxs. Based on observations there is no evidence of paranoia, hallucinations, delusions, bizarre thoughts, IOR or RIS/ RES. It's likely that any visual and tactile disturbances patient is experiencing may be most directly related to alcohol w/d, and he is currently being treated adequately for any w/d related sxs. If more compelling evidence of psychosis emerges, will begin to treat for that as well. 4. M1 expires tomorrow 5. MD asked patient if he'd be willing to follow up with providers at [facility] if he was given an intake appointment there. Patient gave contradictory answer. He said he went there last Tuesday, and "they didn't do anything for me....they're worthless." Another time he said he would go there b/c "I don't have any other choice, do I?" MD asked if patient wants to be treated, he said "Of course I do , that's why I drink." But MD reminded him he was given referral to [facility] when he left [facility] in 03/2016 and didn't go to his appointment, but continued to drink "a lot" based on ED reports. He said, "well every schizophrenic drinks, wouldn't you?" 09/09/17 15:05 1. and CCCornell, met with patient. Patient presented confused at times. He is less irritable and belligerent than yesterday, and does not appear over- medicated. He is speaking in normal rate and tone of voice. No slurring. But he does continue to insist that he is experiencing "constant" VH of "rats crawling on me and everywhere." Yet, as MD reported yesterday, patient gives no outwardly observable indication that he is having such experiences. He does not fidget, move, dart his gaze, shift focus from MD or CC, or swat away perceived hallucinations. This is an extremely unusual way for someone to present who is experiencing VH/TH of such intensity as patient reports. Patient also says he has been sleeping "terrible." He says, "It's awful, I haven't slept in 43 days. " He reports "nightmares" and "scary dreams," which wouldn't be possible unless patient was asleep. Staff are also reporting patient slept 7 hrs last night. Patient seems to be completely unreliable historian, which makes MD wonder if he is malingering. At one point in conversation, patient states he "drank bleach " and took "100 Lisinopril" prior to ED admission. Patient never mentioned bleach in any previous encounters with medical staff (EMS, ED staff or psych staff). He also previously reported taking 20 Lisinopril, and ED evaluation was not consistent with OD on that many anti-hypertensive meds. MD thinks this might be indication that patient is confabulating. Patient admits to MD he is having "memory issues" and feels "confused" and has "hard time thinking clearly. 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 Will check Mg, LFTs and NH4 in AM. 2. Patient would like to take Abilify again. He was given this med during last admission in 03/2016 and started on IM Abilify Maintenna, though he never followed up with P prescribers for any meds after his hospital stay. MD explained risks associated with combining psychotropic, including Abilify, with alcohol. MD also explained that meds are not effective if patient doesn't see OP prescriber to have medications monitored and adjusted appropriately. Patient verbalized his understanding but did not agree he would stay on meds. He abruptly changed topic of conversation and requested Adderall. MD explained why stimulant would not be appropriate d/t risk of dependency and worsening psychotic sxs. Patient started perseverating on stimulant prescription and forgot all about wanting something to treat his hallucinations. 3. Patient completely minimizes his alcohol use and its effect on his mood, cognition, judgment and ability to function. He was not willing to commit to SA treatment, even though MD strongly recommended Naltrexone/Campral as well as outpatient services including CAC and/or IOP. It would not be reasonable to prescribe Antabuse for patient who is not willing to commit to treatment and has long h/o noncompliance with appointments and medications. 4. Patient currently on STC. Will likely d/c on Tuesday back to his apartment. 5. Intake appt with [facility] on 09/16/17. 09/10/17 12:51 1. Patient presents calmer, less anxiety and more congenial in conversation, less irritable and labile. He says he still feels "confused" and is having trouble "remembering things." He still has slight tremor, but denies N/V, sweats , DOWLING, dizziness. His CIWA was only a 3 this AM, significantly decreased from first 48 hrs of his admission. VS remain stable. Despite stating that he "didn' t sleep at all last night," staff confirm patient slept 4 hours and were able to verify patient was snoring frequently during night. 2. Mg, LFTs and ammonia level were all WNL. His AST and ALT which were slightly elevated at admission have come down to normal range. 3. Recommend Naltrexone and/or Campral prior to d/c. Patient would be good candidate for Vivitrol injection. So far, he has denied having a problem with alcohol, tell MD and CC, "I'm not in withdrawal." 4. MD explained reason for not prescribing an atypical antipsychotic at this point. For several reasons: -Waiting for patient to complete w/d, and assess the need and potential risks vs benefits at that time -Serious doubts have been raised based on staff/MD monitoring of patient whether he actually has the type of psychotic sxs he reports - see notes from other days about inconsistency between patient self-report of sxs and outwardly observable behaviors -Concern about patient's h/o noncompliance with meds and treatment and that fact that after every admission and ED visit he has gone back to drinking heavily immediately, MD has explained the serious potential adverse effects from drinking Alcohol while taking psychotropic meds, but patient says, " alcohol is not a problem for me" 5. Patient says he will see implementation project coordinator at [facility] on 09/16/17, but says he "won't go there" if "I have to see Dr. Diaz." 09/11/17 14:56 1. Patient denies any physical complaints today, and denies any w/d related sxs. "I'm done with my withdrawal," he says. 2. D/C CIWA, patient completed tranxene taper today. 3. Patient denies any AH/VH/TH today. He says the "rats" and the visual hallucinations are "gone." 4. Patient says he wants to d/c back to his apartment. He agrees to f/u with [facility] on 09/16/17, except "I won't see Dr. Diaz." 5. Recommend SA tx with CAC and support group. Patient told CC he would be willing to go to [facility] but "not AA meetings." 6. Likely d/c tomorrow. Will need STC terminated. Subjective: Met with patient, reviewed chart and d/w staff. Met with patient and CCMichelle. Patient says he feels "much better." He denied anxiety and says he isn't having any alcohol w/d related sxs. He says, "I'm over the withdrawal." Today for first time, patient denied any VH/TH. He says he doesn't see "rats anymore." He denies having any psychotic sxs, no hallucination, delusions or paranoia. Objective: Vital Signs Temp Pulse Resp BP Pulse Ox 36.3 C 88 18 130/84 H 95 09/11/17 06:00 09/11/17 06:00 09/11/17 06:00 09/11/17 06:00 09/11/17 06:00 MSE: Affect: Euthymic Mood: "Better" TP: Linear TC: Denies any hallucinations for first time during this admission. He said previously he "always" sees "rats or vermin," but today denies any hallucinations, "I"m not seeing rats anymore" he states; denies any SI/HI Insight/Judgment: Improved - Time Spent With Patient Time Spent With Patient: 20" - Pending Discharge Pending Discharge Within 24 Hours: No Pending Discharge Within 48 Hours: No ICD10 Worksheet Patient Problems: Problems Problem Status Onset Alcohol intoxication Acute Suicidal ideation Acute Acidosis Acute Acute delirium Acute Alcohol abuse Acute Alcohol dependence Acute Alcoholism Acute Hepatitis C Acute Hypertension Acute Noncompliance with medications Acute Osteoarthritis of knee Acute Polysubstance abuse Acute Renal failure Acute Schizophrenia Acute Suicidal behavior Acute Prostate cancer Chronic
[2017-09-12] MEDS: IBUPROFEN 200 MG TAB PO PRN (04:34)
[2017-09-12 06:58] VITALS: BP 130/89; RESP 16; TEMP 97; O2SAT 97
[2017-09-12] MEDS: NICOTINE 21 MG/24 HR PATCH TD SCH (08:31)
[2017-09-12] MEDS: MULTIVITAMINS 1 EACH TAB PO SCH (08:32)
[2017-09-12] MEDS: THIAMINE HCL 100 MG TAB PO SCH (08:32)
[2017-09-12] MEDS: FOLIC ACID 1 MG TAB PO SCH (08:48)
--- NOTE | 2017-09-12 12:37 | BDS ---
[f rep st] BEHAVIORAL HEALTH DISCHARGE SUMMARY REASON FOR ADMISSION: The patient is a 62-year-old male, well known to us from previous ad missions, who has a history of schizoaffective disorder and alcoholism. He was admitted after he had presented to the emergency department with suicidal ideations. He stated that he had been drinking excessively, and had recently taken an overdose of 100 tablets of lisinopril and 20 tablets of meloxi cam. He states that he drank at least 20 beers and multiple shots of whiskey during that time as wel l. There were some inconsistencies to his story and he did not have medical signs of an overdose of that significance, but he remained suicidal and was admitted for further evaluation. ADMITTING DIAGNOSES: Per Dr. Tien Ardon, schizoaffective disorder, bipolar type, most recently depr essed, alcohol use disorder severe, cocaine use disorder, severity unknown, lack of social supports, unemployment, disability, chronic severe mental illness, ongoing alcohol dependence, and long history of noncompliance with treatment. ADMITTING PHYSICAL EXAMINATION: Performed by Dr. Nikita Echevarria revealed no acute physical findings except for some knee pain. ADMITTING LABORATORY: CBC showed a platelet count of 431, otherwise normal. Serum chemistry shows s odium up at 146, anion gap high at 19, nonfasting glucose up at 108, AST up at 61, ALT up at 79, othe rwise normal. LFTs were repeated on 09/10/2017 and were normalized. Urine drug screen on admission showed no substances of abuse. Alcohol was 163. HOSPITAL COURSE: Patient was admitted to the [facility] inpatient unit on an M1 hold. He presented to the unit and was complaining of feeling extremely anxious and seeing rats crawling a round, as well as chewing on his skin. We were concerned that he might have delirium tremens, referr ed him back to the emergency department for further evaluation. They spoke with him and determined t hat they did not believe he met criteria for major alcohol withdrawal and returned him to the unit. Once on the unit, we placed him on a CIWA protocol with Tranxene taper. He did well with this and sh owed no evidence of progression of major alcohol withdrawal. His auditory, visual, and tactile hallu cinations resolved by 09/10/2017. Patient participated actively in all therapies and his mood brightened significantly during his hospi talization. He stated that his suicidal ideations had resolved. We talked with him extensively abou t his reasons for noncompliance with his medications prior to admission and he stated he believed it was because he did not have a good working relationship with Dr. Diaz, his psychiatrist at [facility], and that he was upset by disruptions in his living circumstance. He stated by the julieta e of discharge, however, that he wanted to be back on Abilify if possible and wanted to follow up [facility] with a different provider. Patient's hospitalization was uncomplicated. He participated actively in all therapies, was complian t with medications and displayed no behavioral problems. Condition on discharge was stable. His affect was euthymic, stable, and appropriate. He was well or iented, interactive, pleasant and cooperative. He was hopeful and forward thinking. He stated that he wanted to follow up with the mental health treatments, take the Abilify and remain abstinent from alcohol and was willing to participate in their programming in order to achieve these goals. I talke d to him frankly about his pattern in the past of saying this while he is in the hospital and not doi ng it when he left, and he stated that he felt more motivated this time. DISCHARGE MEDICATIONS: Abilify 10 mg p.o. q.h.s. and lisinopril 20 mg daily to be restarted by his [facility] physician after their appointment next week. DISCHARGE DIAGNOSES: Schizoaffective disorder, bipolar type, most recent episode depressed with suic idal ideations, chronic illness, recurrent illness, chronic noncompliance, alcohol use disorder, eliane re cocaine use disorder, severity unknown, lack of social supports. DISPOSITION: The patient left the hospital of his own accord via bus to return to his home. FOLLOW UP: [facility] next week as scheduled by health careers instructor. I confirmed the patient received his discharge instructions and followup appointments at the time of discharge. The patient was converted to a voluntary status at the expiration of his M1 hold. The patient's attitude was positive and hopeful at time of discharge. The patient's advance directives were filed in his chart and he was a full code throughout his admiss ion. There were no pending labs or studies at the time of discharge. /[id number]/MODL
== END 2017-09-12 12:36 | disposition home or self-care (01) | DRG 885 ==
LOC: EDUNIT# → BBEH 21:15
PROVIDERS: ADMIT Psychiatry & Neurology Behavioral Neurology & Neuropsychiatry; ATTEND Psychiatry & Neurology Psychiatry
DX: F25.1 Schizoaffective disorder, depressive type (principal); F25.0 Schizoaffective disorder, bipolar type; F10.229 Alcohol dependence with intoxication, unspecified; F10.230 Alcohol dependence with withdrawal, uncomplicated; F14.90 Cocaine use, unspecified, uncomplicated; Z91.19 Patient's noncompliance with other medical treatment and regimen; N20.0 Calculus of kidney; I10 Essential (primary) hypertension; H40.9 Unspecified glaucoma; F17.210 Nicotine dependence, cigarettes, uncomplicated; Z86.19 Personal history of other infectious and parasitic diseases; Z96.651 Presence of right artificial knee joint; Z87.820 Personal history of traumatic brain injury; Z56.0 Unemployment, unspecified
CPT/HCPCS: 80305; G0009; G0480; J2060

== ENCOUNTER 2017-09-07 10:40 | Emergency (ER) | payer OTHER, MEDICAID ==
--- NOTE | 2017-09-07 10:50 | EDPHY ---
H & P Time Seen by Provider: 09/07/17 10:49 HPI/ROS: HPI: This is a 62-year-old male who presents with Chief Complaint: [facility] with concerns of alcohol withdrawal Location:body Quality: Concerns for alcohol withdrawal Duration: 1-3 hours prior to arrival Signs and Symptoms: No sweating, + tremors, no anxiety, + visual hallucinations , no abdominal pain, no nausea, no vomiting, no fever Timing: Gradual onset Severity: Moderate Context: Patient has a history of schizophrenia and alcoholism presents from the [facility] concerns of alcohol withdrawal. Patient was in the emergency room last night for suicidal ideation with drug overdose of taking lisinopril as well as meloxicam. He had drank 20 beers over the past 24 hr as well as multiple whiskey shots. Upon my interview patient is not sure why he is back into the emergency room. He reports that they gave him 2 tabs of Librium prior to him coming. He reports that he is having visual hallucinations but no suicidal thoughts. He does report mild hand tremors but no abdominal pain, nausea, vomiting, altered mentation. Patient is most concerned with the please check in on his apartment as he believes that it was left wide open when EMS came to get him last night. Given 2 mg of Ativan at 9:30 a.m. Smokes tobacco daily. Denies ever going through alcohol withdrawal seizures. 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 Patient has been refusing to take his schizophrenic meds. Modifying Factors: Above Comment: ROS: see HPI Constitutional: No fever, no chills, no weight loss Eyes: No blurred vision Respiratory: No shortness of breath, no cough Cardiovascular: No chest pain Gastrointestinal: No nausea, no vomiting, no diarrhea Genitourinary: No dysuria Extremities: No myalgias Neurologic: No weakness, no numbness Skin: No rashes Hematologic: No bruising, no bleeding MEDICAL/SURGICAL/SOCIAL HISTORY: PMH- Prostate Ca., Hep. C, HTN, ETOH, bipolar, schizo affective, withsrawal szs PSH- bilat feet, knee replacement, glaucoma, arthritis Social history: Family history noncontributory. Unemployed. CONSTITUTIONAL: Untidy, calm and cooperative, adult white male, awake and alert , no obvious distress HEENT: Atraumatic and normocephalic, PERRL, EOMI. Tympanic membranes clear. Oropharynx clear, no exudate and moist pink mucosa. Airway patent. No lymphadenopathy. No meningismus. Cardiovascular: Normal S1/S2, regular rate, regular rhythm, without murmur rub or gallop. PULMONARY/CHEST: Symmetrical and nontender. Clear to auscultation bilaterally. Good air movement. No accessory muscle usage. ABDOMEN: Soft, nondistended, nontender, no rebound, no guarding, no peritoneal signs, no masses or organomegaly. No CVAT. EXTREMITIES: 2/2 pulses, strength 5/5, no deformities, no clubbing, no cyanosis or edema. NEUROLOGICAL: no focal neuro deficits. GCS 15. SKIN: Warm and dry, no erythema. no rash. Good capillary refill. PSYCH: Good eye contact, no flight of ideas, organized thought process, fair insight and judgment, no auditory hallucination, + visual hallucinations, denies suicidal ideation with a plan, denies homicidal ideation, not paranoid Source: Patient Exam Limitations: No limitations - Personal History Tetanus Vaccine Date: 03/25/11 - Medical/Surgical History Hx Asthma: No Hx Chronic Respiratory Disease: No Hx Diabetes: No Hx Cardiac Disease: No Hx Renal Disease: No Hx Cirrhosis: No Hx Alcoholism: Yes Hx HIV/AIDS: No Hx Splenectomy or Spleen Trauma: No Other PMH: PMH- Prostate Ca., Hep. C, HTN, ETOH, bipolar, schizo affective, withsrawal szs. PSH- bilat feet, knee replacement, glaucoma. arthritis - Social History Smoking Status: Never smoked Constitutional: Initial Vital Signs Temperature (C) 36.7 C 09/07/17 10:53 Heart Rate 79 09/07/17 10:53 Respiratory Rate 18 09/07/17 10:53 Blood Pressure 132/99 H 09/07/17 10:53 O2 Sat (%) 95 09/07/17 10:53 O2 Delivery Mode Room Air Allergies/Adverse Reactions: Iodinated Contrast- Oral and IV Dye Allergy (Unknown, Verified 09/06/17 05:45) Unknown Home Medications: Medication Instructions Recorded Lisinopril [Zestril 20 mg (*)] 20 mg PO DAILY #30 tab 04/07/16 Medical Decision Making ED Course/Re-evaluation: Librium 50 mg and Ativan 2 mg given Vital signs stable upon arrival. CIWA scale= 8 Given Zyprexa 10 mg ODT. 1110: Reassessed patient who is walking around the hallway without any difficulty. No signs of alcohol withdrawal seizures/delirium/psychosis Needs to be discharged back to and for continued psychiatric inpatient treatment. Hallucinations are more related to the schizophrenia then to the alcohol use. 1210: Reassessed patient. Sleeping soundly. CIWA = 4. This patient was seen under the supervision of my secondary supervising physician. I evaluated care for this patient independently. Differential Diagnosis: Differential diagnosis includes but is not limited to psychosis, delusions, schizophrenia, alcohol withdrawal. - Data Points Medications Given: Discontinued Medications Olanzapine (Zyprexa Zydis) 10 mg PO EDNOW ONE Stop: 09/07/17 11:06 Last Admin: 09/07/17 11:18 Dose: 10 mg Departure - Departure Disposition: [facility] IP Clinical Impression: Alcohol abuse Schizophrenia Qualifiers: Schizophrenia type: paranoid schizophrenia Qualified Code(s): F20.0 - Paranoid schizophrenia Condition: Fair Instructions: Schizophrenia (ED) Additional Instructions: Please take all of your medications as prescribed. Take Librium 25-50 mg every 6 hr as needed for alcohol withdrawal symptoms. Take Ativan 1-2 mg every 8 hr as needed for alcohol withdrawal symptoms. Refrain from using alcohol excessively. Referrals: [facility],. [Clinic] - As per Instructions
[2017-09-07] MEDS ORDERED: OLANZapine DISINTEGR 10 MG TAB PO ONE (11:05)
[2017-09-07 11:06] VITALS: PULSE 79; RESP 18
[2017-09-07 12:53] VITALS: BP 125/79; TEMP 98.6; O2SAT 97
== END 2017-09-07 12:49 ==
LOC: EDUNIT#
DX: F20.2 Catatonic schizophrenia (principal); F10.120 Alcohol abuse with intoxication, uncomplicated

== ENCOUNTER 2017-09-21 10:45 | Emergency (ER) | payer OTHER, MEDICAID ==
[2017-09-21 10:53] VITALS: O2SAT 96
[2017-09-21] MEDS ORDERED: CLINDAMYCIN 600 MG/DEXTROSE 50 ML IV ONE (12:01)
--- NOTE | 2017-09-21 12:11 | EDPHY ---
H & P Time Seen by Provider: 09/21/17 11:42 HPI/ROS: CHIEF COMPLAINT: Dental abscess HISTORY OF PRESENT ILLNESS: 62-year-old male presents to the emergency department with right-sided gingival swelling and right-sided facial swelling. Patient states that the swelling has been present over last few days and became acutely worse since last evening. He did try calling his dentist however they are unable to see him until Tuesday, 3 days from now. He has not noticed any fevers or chills. No chest pain or difficulty breathing. No dysphagia. ROS: Denies fevers, chills, dysphagia, neck pain, rash. Past Medical/Surgical History: Prostate cancer, hepatitis-C, hypertension, alcoholism, bipolar, schizoaffective disorder, withdrawal seizures, glaucoma, orthopedic surgeries Social History: Single and lives in [place] Smoking Status: Never smoked Physical Exam: On examination, the patient has obvious right-sided facial swelling. He is able to speak full sentences. No airway involvement. His neck is supple. The gingival mucosa surrounding the right upper 1st and 2nd molar is swollen and tender. There is no purulent drainage noted. His tooth does not appear to be fractured. Teeth are otherwise in good repair. His neck is supple without lymphadenopathy. Constitutional: Initial Vital Signs Temperature (C) 36.6 C 09/21/17 10:51 Heart Rate 99 09/21/17 10:51 Respiratory Rate 17 09/21/17 10:51 Blood Pressure 144/96 H 09/21/17 10:51 O2 Sat (%) 96 09/21/17 10:51 O2 Delivery Mode Room Air Allergies/Adverse Reactions: Iodinated Contrast- Oral and IV Dye Allergy (Unknown, Verified 09/21/17 10:49) Unknown Home Medications: Medication Instructions Recorded Lisinopril [Zestril 20 mg (*)] 20 mg PO DAILY #30 tab 04/07/16 ARIPiprazole [Abilify 10 mg (*)] 10 mg PO DAILY #30 tab 09/12/17 Clindamycin 450 mg PO TID #90 cap 09/21/17 oxyCODONE/APAP 5/325 [Percocet 1 - 2 tab PO Q4-6PRN PRN #15 tab 09/21/17 5/325] MDM/Departure - MDM Procedures: After consent was obtained from the patient, small amount of 1% lidocaine with epinephrine was instilled into the gingival mucosa of the 2nd molar. Small incision was made with using 11. Blade scalpel. Purulent drainage was expressed. Suction was used. Patient was unable to gargle with some water. He was immediately feeling better. Medications Given: Discontinued Medications Clindamycin Phosphate/Dextrose (Cleocin 600 Mg (Premix)) 50 mls @ 100 mls/hr IV EDNOW ONE PRN Reason: Protocol Stop: 09/21/17 12:30 Last Admin: 09/21/17 12:09 Dose: 50 mls ED Course/Re-evaluation: 62-year-old male presents with dental abscess. See procedure note. The patient was given 600 mg of IV clindamycin. He was also given oral clindamycin and told to follow up with his dentist as soon as possible. Patient is afebrile. He had immediate relief after abscess was drained. I do not think further IV antibiotics are indicated as he can't swallow pills. - Depart Disposition: Home, Routine, Self-Care Clinical Impression: Dental abscess Condition: Good Instructions: Dental Abscess (ED) Additional Instructions: Warm salt water gargles as discussed. Clindamycin as prescribed for 10 days. Call your dentist to see if you can arrange sooner follow-up appointment. Tell them that you were seen in the emergency department with dental abscess and your given IV clindamycin and you are on oral clindamycin. Return to the emergency department if you developed recurring facial swelling or pain, fevers or chills, difficulty swallowing, or if you feel worse in any way. Prescriptions: Clindamycin 450 mg PO TID #90 cap oxyCODONE/APAP 5/325 [Percocet 5/325] 1 - 2 tab PO Q4-6PRN PRN #15 tab PRN Reason: For Moderate To Severe Pain Referrals: Lediy Dinero MD [Primary Care Provider] - As per Instructions
[2017-09-21 12:55] VITALS: BP 155/93; PULSE 95; RESP 16; TEMP 98.4
== END 2017-09-21 13:07 | disposition home or self-care (01) ==
LOC: EEVIPCON 10:45
PROC: 0C953ZZ Drainage of Upper Gingiva, Percutaneous Approach (ICD-10-PCS; principal; 2017-09-21)
DX: K04.7 Periapical abscess without sinus (principal); I10 Essential (primary) hypertension; Z85.46 Personal history of malignant neoplasm of prostate
CPT/HCPCS: 96365

== ENCOUNTER 2017-12-10 19:35 | Emergency (ER) | payer OTHER, MEDICAID ==
--- NOTE | 2017-12-10 19:48 | EDPHY ---
H & P Stated Complaint: HEADACHE NUMBNESS FOR PAT 2 DAYS FRRLING OFF Time Seen by Provider: 12/10/17 19:48 - Personal History Current Tetanus/Diphtheria Vaccine: Yes Current Tetanus Diphtheria and Acellular Pertussis (TDAP): Yes Tetanus Vaccine Date: 03/25/11 - Medical/Surgical History Hx Asthma: No Hx Chronic Respiratory Disease: No Hx Diabetes: No Hx Cardiac Disease: No Hx Renal Disease: No Hx Cirrhosis: No Hx Alcoholism: Yes Hx HIV/AIDS: No Hx Splenectomy or Spleen Trauma: No Other PMH: PMH- Prostate Ca., Hep. C, HTN, ETOH, bipolar, schizo affective, withsrawal szs. PSH- bilat feet, knee replacement, glaucoma. arthritis - Social History Smoking Status: Never smoked Constitutional: Initial Vital Signs Temperature (C) 36.4 C 12/10/17 19:42 Heart Rate 86 12/10/17 19:42 Respiratory Rate 18 12/10/17 19:42 Blood Pressure 194/97 H 12/10/17 19:42 O2 Sat (%) 98 12/10/17 19:42 O2 Delivery Mode Room Air Allergies/Adverse Reactions: Iodinated Contrast- Oral and IV Dye Allergy (Unknown, Verified 12/10/17 19:44) Unknown Home Medications: Medication Instructions Recorded Lisinopril [Zestril 20 mg (*)] 20 mg PO DAILY #30 tab 04/07/16 ARIPiprazole [Abilify 10 mg (*)] 10 mg PO DAILY #30 tab 09/12/17 Clindamycin 450 mg PO TID #90 cap 09/21/17 oxyCODONE/APAP 5/325 [Percocet 1 - 2 tab PO Q4-6PRN PRN #15 tab 09/21/17 5/325] Medical Decision Making - Diagnostics Imaging Results: Imaging Impressions Chest X-Ray 12/10/17 19:52 Impression: No evidence of acute cardiopulmonary abnormality. Imaging: I viewed and interpreted images myself ED Course/Re-evaluation: CHIEF COMPLAINT: Headache, left arm numbness HISTORY OF PRESENT ILLNESS: The patient is a 62 y/o male with a history of Hepatitis C and hypertension complaining of a headache, "feeling off", left arm numbness, and bilateral shoulder pain onset yesterday. Denies chest pain, chest pressure, shortness of breath, abdominal pain, urinary or bowel complaints, fever. He states he had a dental procedure recently and was prescribed pain medication. He is a recovering alcoholic. REVIEW OF SYSTEMS: A 10 point review of systems was performed and is negative with the exception of the elements mentioned in the history of present illness. PHYSICAL EXAM: HR, BP, O2 Sat, RR. Temp noted General Appearance: Alert, well hydrated, appropriate, and non-toxic appearing. Head: Atraumatic without scalp tenderness or obvious injury Eyes: Pupils equal, round, reactive to light and accommodation, EOMI, no trauma , no injection. Ears: Clear bilaterally, no perforation, normal landmarks Nose: Atraumatic, no rhinorrhea, clear. Throat: There is no erythema or exudates, no lesions, normal tonsils, mucus membranes moist. Neck: Supple, nontender, no lymphadenopathy. Respiratory: No retractions, no distress, no wheezes, and no accessory muscle use. Lungs are clear to auscultation bilaterally. Cardiovascular: Regular rate and rhythm, no murmurs, rubs, or gallops. Good capillary refill all extremities. Gastrointestinal: Abdomen is soft, nontender, non-distended, no masses, no rebound, no guarding, no peritoneal signs. Musculoskeletal: Normal active ROM of all extremities, atraumatic. Neurological: Alert, appropriate, and interactive. Non-focal neuro. Skin: No rashes, good turgor, no nodules on palpation. Past medical history: Prostate cancer, Hep. C, hypertension, bipolar, schizo affective, withdrawal seicures. Past surgical history: Bilateral feet surgery, knee replacement, glaucoma Family history: Denies Social history: Lives in [place], not employed, former alcoholic DIAGNOSTICS/PROCEDURES/CRITICAL CARE TIME: EKG: The 12 lead EKG was interpreted by myself sinus rhythm with a rate of 80. See hard copy and/or "tracemaster" electronic copy for interpretation. Chest x-ray: Normal DIFFERENTIAL DIAGNOSIS: The differential diagnosis for the patient's headache included but was not limited to subarachnoid hemorrhage, migraine headache, tension headache and infectious causes such as meningitis, pharyngitis and sinusitis. MEDICAL DECISION MAKING: The patient is a 62 y/o male with a history of Hepatitis C and hypertension presenting with a headache, "feeling off", left arm numbness, and bilateral shoulder pain onset yesterday. Labs, EKG, and chest x-ray ordered. 1953: I interpreted patient's EKG which is normal. 2039: Patient has a normal chest x-ray and labs. 2042: Reassessed patient and discussed imaging and laboratory findings. I have advised him to follow up with his primary care provider. Return precautions provided; patient is comfortable with this plan. - Data Points Laboratory Results: Laboratory Results 12/10/17 19:50 12/10/17 19:50 12/10/17 12/10/17 19:50 19:50 WBC 6.26 10^3/uL 10^3/uL (3.80-9.50) RBC 5.11 10^6/uL 10^6/uL (4.40-6.38) Hgb 16.3 g/dL g/dL (13.7-17.5) Hct 46.7 % % (40.0-51.0) MCV 91.4 fL fL (81.5-99.8) MCH 31.9 pg pg (27.9-34.1) MCHC 34.9 g/dL g/dL (32.4-36.7) RDW 12.9 % % (11.5-15.2) Plt Count 360 10^3/uL 10^3/uL (150-400) MPV 9.0 fL fL (8.7-11.7) Neut % (Auto) 42.8 % % (39.3-74.2) Lymph % (Auto) 43.3 % % (15.0-45.0) [place] % (Auto) 9.7 % % (4.5-13.0) Eos % (Auto) 3.0 % % (0.6-7.6) Baso % (Auto) 1.0 % % (0.3-1.7) Nucleat RBC Rel Count 0.0 % % (0.0-0.2) Absolute Neuts (auto) 2.68 10^3/uL 10^3/uL (1.70-6.50) Absolute Lymphs (auto) 2.71 10^3/uL 10^3/uL (1.00-3.00) Absolute Monos (auto) 0.61 10^3/uL 10^3/uL (0.30-0.80) Absolute Eos (auto) 0.19 10^3/uL 10^3/uL (0.03-0.40) Absolute Basos (auto) 0.06 10^3/uL 10^3/uL (0.02-0.10) Absolute Nucleated RBC 0.00 10^3/uL 10^3/uL (0-0.01) Immature Gran % 0.2 % % (0.0-1.1) Immature Gran # 0.01 10^3/uL 10^3/uL (0.00-0.10) Sodium 143 mEq/L mEq/L (135-145) Potassium 4.3 mEq/L mEq/L (3.3-5.0) Chloride 105 mEq/L mEq/L (97-110) Carbon Dioxide 24 mEq/l mEq/l (22-31) Anion Gap 14 mEq/L mEq/L (8-16) BUN 24 mg/dL H mg/dL (7-23) Creatinine 1.1 mg/dL mg/dL (0.7-1.3) Estimated GFR > 60 Glucose 102 mg/dL H mg/dL (70-100) Calcium 9.8 mg/dL mg/dL (8.5-10.4) Troponin I < 0.012 ng/mL ng/mL (0.000-0.034) Departure - Departure Disposition: Home, Routine, Self-Care Clinical Impression: Left arm numbness Headache Qualifiers: Headache type: unspecified Headache chronicity pattern: acute headache Intractability: intractable Qualified Code(s): R51 - Headache Condition: Good Instructions: Acute Headache (ED), Paresthesia (ED) Additional Instructions: 1. Follow-up with your primary care physician within 72 hours. 2. Return to the emergency department immediately for recurrence of headache, nausea, vomiting, numbness, weakness, neck pain, fever or other concerns. 3. Use Tylenol and/or ibuprofen as directed. Referrals: Leidy Dinero MD [Primary Care Provider] - As per Instructions Report Scribed for: Cole Patel Report Scribed by: Mary Barrera Date of Report: 12/10/17 Time of Report: 19:49
--- NOTE | 2017-12-10 19:55 | CPEKG ---
Heart Rate: 81 RR Interval: 741 P-R Interval: 164 QRSD Interval: 90 QT Interval: 384 QTC Interval: 446 P [place]: 63 QRS [place]: 12 T Wave [place]: 32 EKG Severity - NORMAL ECG - EKG Impression: SINUS RHYTHM Electronically Signed By: Cole Patel 10-Dec-2017 21:56:38
[2017-12-10 20:02] LABS: PLATELET COUNT 360 10^3/uL (150-400)
[2017-12-10 20:47] VITALS: BP 149/108
== END 2017-12-10 20:48 | disposition home or self-care (01) ==
DX: R51 Headache (principal); R20.0 Anesthesia of skin; I10 Essential (primary) hypertension; Z85.46 Personal history of malignant neoplasm of prostate

== ENCOUNTER 2018-04-08 21:00 | Emergency (ER) | payer OTHER ==
--- NOTE | 2018-04-08 21:27 | CPEKG ---
Test Reason : OPEN Blood Pressure : / mmHG Vent. Rate : 098 BPM Atrial Rate : 097 BPM P-R Int : 179 ms QRS Dur : 096 ms QT Int : 365 ms P-R-T Axes : 046 007 030 degrees QTc Int : 467 ms Sinus rhythm Confirmed by Adriano Sutherland ([id number]) on 04/08/2018 9:26:23 PM Referred By: Confirmed By:Adriano Sutherland
[2018-04-08 21:30] LABS: PLATELET COUNT 344 10^3/uL (150-400)
--- NOTE | 2018-04-08 21:42 | EDPHY ---
H & P Stated Complaint: chest pain Time Seen by Provider: 04/08/18 21:42 HPI/ROS: HPI CHIEF COMPLAINT: Alcohol intoxication, syncope, head strike comma chest pain HISTORY OF PRESENT ILLNESS: 63-year-old male, presents emergency room by EMS with multiple complaints. Patient states he drank approximately a 5th of vodka this evening and then had a syncopal episode. Patient states he is not sure why passed out but he had head strike 1st coffee table. Also reports that he had some right-sided chest discomfort. He presents emergency room by EMS highly intoxicated with alcohol. Past Medical History: Significant past medical history for schizoaffective disorder bipolar, hep C, hypertension, traumatic brain injury, alcoholism daily alcohol use, prostate CA Past Surgical History: No recent surgery Social History: Daily alcohol use. Alcoholism. 5th of vodka this evening. Family History: Noncontributory ROS REVIEW OF SYSTEMS: 10 Systems were reviewed and negative with the exception of the elements mentioned in the history of present illness. Exam Constitutional intoxicated, smells of alcohol triage nursing summary reviewed, vital signs reviewed, awake/alert. Eyes normal conjunctivae and sclera, EOMI, PERRLA. HENT head/neck atraumatic moist mucus membranes, no epistaxis, neck supple/ no meningismus, no raccoon eyes. Respiratory clear to auscultation bilaterally, normal breath sounds, no respiratory distress, no wheezing. Cardiovascular rate normal, regular rhythm, no murmur, no edema, distal pulses normal. Gastrointestinal soft, non-tender, no rebound, no guarding, normal bowel sounds, no distension, no pulsatile mass. Genitourinary no CVA tenderness. Musculoskeletal no midline vertebral tenderness, full range of motion, no calf swelling, no tenderness of extremities, no meningismus, good pulses, neurovascularly intact. Skin pink, warm, & dry, no rash, skin atraumatic. Neurologic awake, alert and oriented x 3, AAOx3, moves all 4 extremities equally, motor intact, sensory intact, CN II-XII intact, normal cerebellar, normal vision, normal speech. Psychiatric normal mood/affect. Heme/Lymph/Immune no lymphadenopathy. Differential Diagnosis: Includes but is not limited to in a particular order closed-head injury, intracranial bleed, skull fracture, traumatic subarachnoid, subdural, epidural, acute alcohol intoxication, syncope, dehydration, electrolyte disturbance, cardiac arrhythmia. Medical Decision Making: Plan for this patient IV establishment IV fluid bolus , EKG, troponin, chest x-ray, CT scan head without contrast, check alcohol level re-evaluate. Re-evaluation: EKG interpretation by me on record in [facility] system. Impression time of EKG 2103, sinus rhythm rate of 98. With any signs of acute ischemia no ST elevation no ST depression no T-wave abnormalities. Similar previous EKG dated 12/10/2017. A CT scan head without contrast negative for acute traumatic injury. Called to me by Dr. Marquez. Serum alcohol level 384. 0434: Patient re-evaluated this time resting comfortably no complaints been sleeping here for close to 7 hr in the emergency room. No chest pain. No shortness of breath. Patient's EKG is nonischemic. 2 troponins are negative. Alcohol level was noted to be very high 384. He is now sober. Answers my questions appropriately and is stable for discharge Source: Patient, EMS - Personal History Current Tetanus Diphtheria and Acellular Pertussis (TDAP): Yes Tetanus Vaccine Date: 03/25/11 - Medical/Surgical History Hx Asthma: No Hx Chronic Respiratory Disease: No Hx Diabetes: No Hx Cardiac Disease: No Hx Renal Disease: No Hx Cirrhosis: No Hx Alcoholism: Yes Hx HIV/AIDS: No Hx Splenectomy or Spleen Trauma: No Other PMH: PMH- Prostate Ca., Hep. C, HTN, ETOH, bipolar, schizo affective, withsrawal szs. PSH- bilat feet, knee replacement, glaucoma. arthritis - Social History Smoking Status: Current every day smoker Constitutional: Initial Vital Signs Temperature (C) 36.7 C 04/08/18 21:02 Heart Rate 98 04/08/18 21:02 Respiratory Rate 17 04/08/18 21:02 Blood Pressure 156/106 H 04/08/18 21:02 O2 Sat (%) 90 L 04/08/18 21:02 O2 Delivery Mode Room Air O2 (L/minute) 2 Allergies/Adverse Reactions: Iodinated Contrast- Oral and IV Dye Allergy (Unknown, Verified 03/01/18 15:05) Unknown Home Medications: Medication Instructions Recorded Adderall 10 MG (*) 04/08/18 Lisinopril [Zestril 20 mg (*)] 04/08/18 [place] Aspartate 04/08/18 Medical Decision Making - Diagnostics Imaging Results: Imaging Impressions Chest X-Ray 04/08/18 21:45 Impression: Normal. Head CT 04/08/18 21:46 Impression: There is no acute intracranial abnormality identified on this unenhanced CT evaluation. If there is further clinical concern regarding the patient's symptoms, MR imaging is suggested, if not otherwise contraindicated. Findings were discussed with Danny Ricardo PA-C, who will convey the information to Luis Ramirez MD at 22:28, on 04/08/2018. - Data Points Laboratory Results: Laboratory Results 04/08/18 21:00 04/08/18 21:00 04/09/18 04/08/18 04/08/18 04:10 21:08 21:00 WBC RBC Hgb Hct MCV MCH MCHC RDW Plt Count MPV Neut % (Auto) Lymph % (Auto) [place] % (Auto) Eos % (Auto) Baso % (Auto) Nucleat RBC Rel Count Absolute Neuts (auto) Absolute Lymphs (auto) Absolute Monos (auto) Absolute Eos (auto) Absolute Basos (auto) Absolute Nucleated RBC Immature Gran % Immature Gran # Sodium Potassium Chloride Carbon Dioxide Anion Gap BUN Creatinine Estimated GFR Glucose Calcium POC Troponin I 0.02 ng/mL ng/mL 0.00 ng/mL ng/mL (0.00-0.08) (0.00-0.08) Ethyl Alcohol 384 mg/dL H mg/dL (0-10) 04/08/18 04/08/18 21:00 21:00 WBC 7.91 10^3/uL 10^3/uL (3.80-9.50) RBC 4.81 10^6/uL 10^6/uL (4.40-6.38) Hgb 15.3 g/dL g/dL (13.7-17.5) Hct 44.4 % % (40.0-51.0) MCV 92.3 fL fL (81.5-99.8) MCH 31.8 pg pg (27.9-34.1) MCHC 34.5 g/dL g/dL (32.4-36.7) RDW 13.6 % % (11.5-15.2) Plt Count 344 10^3/uL 10^3/uL (150-400) MPV 9.1 fL fL (8.7-11.7) Neut % (Auto) 34.8 % L % (39.3-74.2) Lymph % (Auto) 53.1 % H % (15.0-45.0) [place] % (Auto) 9.5 % % (4.5-13.0) Eos % (Auto) 0.9 % % (0.6-7.6) Baso % (Auto) 1.4 % % (0.3-1.7) Nucleat RBC Rel Count 0.0 % % (0.0-0.2) Absolute Neuts (auto) 2.76 10^3/uL 10^3/uL (1.70-6.50) Absolute Lymphs (auto) 4.20 10^3/uL H 10^3/uL (1.00-3.00) Absolute Monos (auto) 0.75 10^3/uL 10^3/uL (0.30-0.80) Absolute Eos (auto) 0.07 10^3/uL 10^3/uL (0.03-0.40) Absolute Basos (auto) 0.11 10^3/uL H 10^3/uL (0.02-0.10) Absolute Nucleated RBC 0.00 10^3/uL 10^3/uL (0-0.01) Immature Gran % 0.3 % % (0.0-1.1) Immature Gran # 0.02 10^3/uL 10^3/uL (0.00-0.10) Sodium 146 mEq/L H mEq/L (135-145) Potassium 4.3 mEq/L mEq/L (3.3-5.0) Chloride 109 mEq/L mEq/L (97-110) Carbon Dioxide 20 mEq/l L mEq/l (22-31) Anion Gap 17 mEq/L H mEq/L (8-16) BUN 17 mg/dL mg/dL (7-23) Creatinine 0.9 mg/dL mg/dL (0.7-1.3) Estimated GFR > 60 Glucose 106 mg/dL H mg/dL (70-100) Calcium 8.6 mg/dL mg/dL (8.5-10.4) POC Troponin I Ethyl Alcohol Medications Given: Discontinued Medications Sodium Chloride (Ns) 1,000 mls @ 0 mls/hr IV ONCE ONE PRN Reason: Wide Open Stop: 04/08/18 21:46 Last Admin: 04/08/18 21:53 Dose: 1,000 mls Point of Care Test Results: Chemistry 04/09/18 04/08/18 04:10 21:08 POC Troponin I 0.02 ng/mL ng/mL 0.00 ng/mL ng/mL (0.00-0.08) (0.00-0.08) Departure - Departure Disposition: Home, Routine, Self-Care Clinical Impression: Alcohol intoxication Condition: Good Instructions: Alcohol Intoxication (ED), Abuse of Alcohol (ED) Referrals: Patient,NotPresent [Unknown] - As per Instructions
[2018-04-08] MEDS ORDERED: NS 1,000 ML IV ONE (21:45)
[2018-04-09 04:52] VITALS: BP 123/82
== END 2018-04-09 04:52 | disposition home or self-care (01) ==
LOC: EDUNIT#
DX: F10.929 Alcohol use, unspecified with intoxication, unspecified (principal); R55 Syncope and collapse; R07.9 Chest pain, unspecified; F17.200 Nicotine dependence, unspecified, uncomplicated
CPT/HCPCS: 84484-PO; G0480

== ENCOUNTER 2018-07-15 05:25 | Emergency (ER) | payer OTHER ==
[2018-07-15] MEDS ORDERED: LORazepam 2 MG/ML INJ IVP ONE (05:31)
[2018-07-15] MEDS ORDERED: LORazepam 2 MG/ML INJ IVP PRN (05:31)
[2018-07-15] MEDS ORDERED: NS 1,000 ML IV ONE (05:31)
[2018-07-15] MEDS ORDERED: LORazepam 1 MG TAB PO PRN (05:31)
[2018-07-15] MEDS ORDERED: CHLORDIAZEPOXIDE 25MG PREPK#6 BTL TAKEHOME ONE (06:21)
[2018-07-15] MEDS ORDERED: chlordiazePOXIDE 25 MG CAP PO ONE (06:21)
--- NOTE | 2018-07-15 06:22 | EDPHY ---
H & P Stated Complaint: ETOH ABUSE, ON ARC HOLD. HEARING VOICES Time Seen by Provider: 07/15/18 05:30 HPI/ROS: HPI The patient presents brought in by ambulance for symptoms of alcohol withdrawal which began several hours ago. His last drink was at midnight and he has been drinking up to a gal of hard alcohol daily. He feels shaky and tremulous. He reports visual hallucinations. He says he has these at baseline from his schizoaffective disorder, however they are worse now. He has not had any vomiting, loss of consciousness, seizures. He has frequent prior visits for alcohol withdrawal. REVIEW OF SYSTEMS 10 systems were reviewed and negative with the exception of the elements mentioned in the history of present illness. PMHx: Hepatitis C, schizoaffective disorder, HTN, history of alcohol withdrawal Soc Hx: Lives in an apartment, heavy alcohol use PHYSICAL General Appearance: Alert, no distress Eyes: Pupils equal and round no pallor or injection ENT, Mouth: Mucous membranes dry Respiratory: There are no retractions, lungs are clear to auscultation Cardiovascular: Regular rate and rhythm Gastrointestinal: Abdomen is soft and non-tender, no masses, bowel sounds normal Neurological: A&O, moves all extremities, hand tremor is present Skin: Warm and dry, no rashes Musculoskeletal: Neck is supple non tender Extremities: symmetrical, full range of motion Psychiatric: Patient is oriented X 3, there is no agitation Source: Patient - Personal History Current Tetanus/Diphtheria Vaccine: Yes Current Tetanus Diphtheria and Acellular Pertussis (TDAP): Yes Tetanus Vaccine Date: 03/25/11 - Medical/Surgical History Hx Asthma: No Hx Chronic Respiratory Disease: No Hx Diabetes: No Hx Cardiac Disease: No Hx Renal Disease: No Hx Cirrhosis: No Hx Alcoholism: Yes Hx HIV/AIDS: No Hx Splenectomy or Spleen Trauma: No Other PMH: PMH- Prostate Ca., Hep. C, HTN, ETOH, bipolar, schizo affective, withsrawal szs. PSH- bilat feet, knee replacement, glaucoma. arthritis - Social History Smoking Status: Heavy smoker Constitutional: Initial Vital Signs Temperature (C) 36.7 C 07/15/18 05:28 Heart Rate 112 H 07/15/18 05:28 Respiratory Rate 18 07/15/18 05:28 Blood Pressure 187/104 H 07/15/18 05:28 O2 Sat (%) 95 07/15/18 05:28 O2 Delivery Mode Room Air Allergies/Adverse Reactions: Iodinated Contrast- Oral and IV Dye Allergy (Unknown, Verified 07/15/18 05:31) Unknown Home Medications: Medication Instructions Recorded Adderall 10 MG (*) 04/08/18 Lisinopril [Zestril 20 mg (*)] 04/08/18 [place] Aspartate 04/08/18 Medical Decision Making Differential Diagnosis: 63-year-old man brought in by ambulance for alcohol withdrawal symptoms. Patient has longstanding history of alcohol abuse and withdrawal symptoms. He stopped drinking at about midnight last night. Here, he is hypertensive and tachycardic. He is having visual hallucinations, though says this is not far from his baseline. Plan for IV fluids, CIWA protocol. After several hours, the patient felt better, he was no longer tachycardic or hypertensive and did not have a hand tremor. [facility] - Data Points Medications Given: Discontinued Medications Sodium Chloride (Ns) 1,000 mls @ 0 mls/hr IV EDNOW ONE; Wide Open PRN Reason: Protocol Stop: 07/15/18 05:32 Last Admin: 07/15/18 05:56 Dose: 1,000 mls Lorazepam (Ativan Injection) 1 mg IVP EDNOW ONE Stop: 07/15/18 05:32 Last Admin: 07/15/18 05:55 Dose: 2 mg Departure - Departure Disposition: Home, Routine, Self-Care Clinical Impression: Alcohol withdrawal Qualifiers: Complication of substance-induced condition: with delirium Qualified Code(s): F10.231 - Alcohol dependence with withdrawal delirium Condition: Good Instructions: Alcohol Withdrawal (ED) Referrals: [facility] [Outside] - As per Instructions
[2018-07-15 08:05] VITALS: BP 132/87
== END 2018-07-15 07:40 | disposition home or self-care (01) ==
LOC: EDUNIT#
DX: F10.231 Alcohol dependence with withdrawal delirium (principal); B19.20 Unspecified viral hepatitis C without hepatic coma; F20.89 Other schizophrenia; I10 Essential (primary) hypertension; F17.200 Nicotine dependence, unspecified, uncomplicated
CPT/HCPCS: 96374; 99284; J2060

== ENCOUNTER 2018-08-06 06:38 | Emergency (ER) | payer OTHER ==
[2018-08-06] MEDS ORDERED: KETOROLAC 30 MG/1 ML SDV IVP ONE (07:23)
[2018-08-06] MEDS ORDERED: NS 1,000 ML IV ONE ×2 (07:23)
[2018-08-06] MEDS ORDERED: ONDANSETRON 4 MG/2 ML VIAL IVP ONE (07:23)
--- NOTE | 2018-08-06 07:27 | EDPHY ---
H & P Stated Complaint: 4 DAYS OF PASSING KIDNEY STONE, NOW CANT URINATE, THINKS STUCK IN PENIS Time Seen by Provider: 08/06/18 07:09 - Personal History Current Tetanus/Diphtheria Vaccine: Yes Tetanus Vaccine Date: 03/25/11 - Medical/Surgical History Hx Asthma: No Hx Chronic Respiratory Disease: No Hx Diabetes: No Hx Cardiac Disease: No Hx Renal Disease: No Hx Cirrhosis: No Hx Alcoholism: Yes Hx HIV/AIDS: No Hx Splenectomy or Spleen Trauma: No Other PMH: PMH- Prostate Ca., Hep. C- TREATED , HTN, ETOH, bipolar, schizo affective, withsrawal szs, LUNG NODULE. PSH- bilat feet, knee replacement, glaucoma. arthritis - Social History Smoking Status: Heavy smoker Constitutional: Initial Vital Signs Temperature (C) 36.5 C 08/06/18 06:41 Heart Rate 110 H 08/06/18 06:41 Respiratory Rate 22 H 08/06/18 06:41 Blood Pressure 170/103 H 08/06/18 06:41 O2 Sat (%) 96 08/06/18 06:41 O2 Delivery Mode Room Air Allergies/Adverse Reactions: Iodinated Contrast- Oral and IV Dye Allergy (Unknown, Verified 07/15/18 05:31) Unknown Home Medications: Medication Instructions Recorded Lisinopril [Zestril 20 mg (*)] 04/08/18 Medical Decision Making ED Course/Re-evaluation: CHIEF COMPLAINT: Abdominal pain, possible kidney stone HISTORY OF PRESENT ILLNESS: The patient is a 63 y/o male with a history of kidney stones complaining of abdominal pain onset 4 days ago. Four days ago, he developed pain in the upper right side of his flank and back. Over the past few days, the pain has migrated down to the right lower abdomen, right groin, and testicle. He reports increased urinary frequency and urgency. While urinating, the pain radiates to surrounding areas. He denies any other associated symptoms. He reports the symptoms are consistent with previous kidney stones. REVIEW OF SYSTEMS: A 10 system review of systems was performed and is negative with the exception of the elements mentioned in the history of present illness. PHYSICAL EXAM: HR, BP, O2 Sat, RR. Temp noted General Appearance: Alert, well hydrated, appropriate, and non-toxic appearing. Head: Atraumatic without scalp tenderness or obvious injury Eyes: Pupils equal, round, reactive to light and accommodation, EOMI, no trauma , no injection. Neck: Supple, 2+ carotid upstroke, nontender, no lymphadenopathy. Respiratory: No retractions, no distress, no wheezes, and no accessory muscle use. Lungs are clear to auscultation bilaterally. Cardiovascular: Regular rate and rhythm, no murmurs, rubs, or gallops. Good capillary refill all extremities. Gastrointestinal: Abdomen is soft, nontender, non-distended, no masses, no rebound, no guarding, no peritoneal signs. Pain is not reproducible to palpation. Musculoskeletal: Normal active ROM of all extremities, atraumatic. Neurological: Alert, appropriate, and interactive. Grossly non-focal. Skin: No rashes, good turgor, no nodules on palpation. Past medical history: Kidney stones, hepatitis C, withdrawal, alcoholism, prostate cancer, hypertension, bipolar Past surgical history: Knee replacement Family history: Non-contributory Social history: Lives in [place], single, PCP: Dr. Dinero DIAGNOSTICS/PROCEDURES/CRITICAL CARE TIME: Study: CT of the abdomen Indication: Abdominal pain, possible kidney stone Results: CT scan of the body parts was obtained. The results of the study indicate multiple stones in both kidney but no stone on the lower right ureter, bladder, or urethra. Further, there is thickening of the anterior wall of the bladder. The study was read by the radiologist, Dr. Medeiros. DIFFERENTIAL DIAGNOSIS: The differential diagnosis for the patient's abdominal pain included but was not limited to kidney stones, appendicitis, cholecystitis, hernias, testicular torsion, gastritis, and urinary tract infection. MEDICAL DECISION MAKING: The patient presents with abdominal pain and increased urinary urgency and frequency. He has a history of kidney stones and reports this feels like previous kidney stones. Pain has been occurring for 4 days now and has progressed from the right upper flank and back to the right lower abdomen and groin. Since symptoms have been present for 4 days, plan for abdominal CT, urinalysis, and iSTAT. 8:10 AM - The CT does not indicate a kidney stone in the lower right abdomen but does show some concerning thickening of the anterior wall of the bladder. Urinalysis results are pending. This patient has blood in his urine but no evidence of urinary tract infection. On the CT he does have some bladder wall thickening and since he does not have evidence of infection on the UA I am concerned about a potential bladder mass. He does have history of prostate cancer. We will get him followed up with Urology. It is certainly possible that he passed a stone recently he has had symptoms for 4 days and felt exactly like a kidney stone he does have blood in his urine but the CT is unremarkable for any ureteral stones. Urology follow -up regardless will benefit this patient. - Data Points Laboratory Results: 08/06/18 08/06/18 08:15 07:37 POC Hgb 17.0 gm/dL gm/dL (13.7-17.5) POC Hct 50 % % (40-51) POC Sodium 142 mEq/L mEq/L (135-145) POC Potassium 3.5 mEq/L mEq/L (3.3-5.0) POC Chloride 109 mEq/L mEq/L (97-110) POC BUN 29 mg/dL H mg/dL (7-23) POC Creatinine 1.3 mg/dL mg/dL (0.7-1.3) POC Glucose 95 mg/dL mg/dL (70-100) Urine Color YELLOW Urine Appearance CLEAR Urine pH 5.0 (5.0-7.5) Ur Specific [place] 1.027 (1.002-1.030) Urine Protein 1+ H (NEGATIVE) Urine Ketones 1+ H (NEGATIVE) Urine Blood 2+ H (NEGATIVE) Urine Nitrate NEGATIVE (NEGATIVE) Urine Bilirubin NEGATIVE (NEGATIVE) Urine Urobilinogen 4.0 EU H EU (0.2-1.0) Ur Leukocyte Esterase NEGATIVE (NEGATIVE) Urine RBC 25-50 /hpf H /hpf (0-3) Urine WBC 1-3 /hpf /hpf (0-3) Ur Epithelial Cells NONE SEEN /lpf /lpf (NONE-1+) Urine Mucus TRACE /lpf /lpf (NONE-1+) Urine Glucose NEGATIVE (NEGATIVE) Medications Given: Discontinued Medications Hydromorphone HCl (Dilaudid) 1 mg IVP EDNOW ONE Stop: 08/06/18 07:40 Last Admin: 08/06/18 08:12 Dose: 1 mg Sodium Chloride (Ns) 1,000 mls @ 0 mls/hr IV ONCE ONE; Wide Open PRN Reason: Protocol Stop: 08/06/18 07:24 Last Admin: 08/06/18 08:12 Dose: 1,000 mls Sodium Chloride (Ns) 1,000 mls @ 0 mls/hr IV ONCE ONE; Wide Open PRN Reason: Protocol Stop: 08/06/18 07:24 Last Admin: 08/06/18 08:13 Dose: 1,000 mls Ketorolac Tromethamine (Toradol) 30 mg IVP EDNOW ONE Stop: 08/06/18 07:24 Last Admin: 08/06/18 08:12 Dose: 30 mg Ondansetron HCl (Zofran) 4 mg IVP EDNOW ONE Stop: 08/06/18 07:24 Last Admin: 08/06/18 08:12 Dose: 4 mg Point of Care Test Results: Chemistry 08/06/18 07:37 POC Sodium 142 mEq/L mEq/L (135-145) POC Potassium 3.5 mEq/L mEq/L (3.3-5.0) POC Chloride 109 mEq/L mEq/L (97-110) POC BUN 29 mg/dL H mg/dL (7-23) POC Creatinine 1.3 mg/dL mg/dL (0.7-1.3) POC Glucose 95 mg/dL mg/dL (70-100) ISTAT H&H 08/06/18 07:37 POC Hgb 17.0 gm/dL gm/dL (13.7-17.5) POC Hct 50 % % (40-51) Departure - Departure Disposition: Home, Routine, Self-Care Clinical Impression: Calculus of right kidney, Calculus of left kidney Condition: Good Instructions: Kidney Stones (ED) Additional Instructions: Follow-up with Urology. You have a thick bladder wall which may represent some inflammation but the urologist needs to examine you. Referrals: Leidy Dinero MD [Primary Care Provider] - As per Instructions Report Scribed for: Cole Patel Report Scribed by: Dasia Anderson Date of Report: 08/06/18 Time of Report: 08:54
[2018-08-06] MEDS ORDERED: HYDROmorphONE/DILAUDID 2 MG/ML INJ IVP ONE (07:39)
[2018-08-06 09:06] VITALS: BP 148/79
== END 2018-08-06 09:11 | disposition home or self-care (01) ==
DX: N20.0 Calculus of kidney (principal); E86.9 Volume depletion, unspecified
CPT/HCPCS: 74176; 96361; 96374; 96375; 99285; J1170; J1885; J2405; 82435-PO; 82565-PO; 82947-PO; 84132-PO; 84295-PO; 84520-PO; 85014-ER

== ENCOUNTER 2018-10-17 22:54 | Observation (INO) | payer OTHER, MEDICAID ==
[2018-10-17] MEDS ORDERED: NS 1,000 ML IV ONE (23:10)
--- NOTE | 2018-10-17 23:10 | EDPHY ---
H & P Stated Complaint: c/o abd pain/n/v and very dark stools x 5 days Time Seen by Provider: 10/17/18 23:10 HPI/ROS: HPI CHIEF COMPLAINT: Abdominal pain, nausea, vomiting HISTORY OF PRESENT ILLNESS: This is a 63-year-old male, he suffers from depression, and often use alcohol, presents emergency room with nausea vomiting abdominal pain. Complains of epigastric burning pain and multiple episodes of vomiting. He states been going on for 5 days. He mainly complains of bilious vomiting. No blood. He denies any chest pain or shortness of breath. Denies fever. Past Medical History: History of depression, schizophrenia, alcohol abuse, alcohol withdrawal Past Surgical History: Denies recent surgery Social History: Frequent alcohol use. Family History: Noncontributory ROS REVIEW OF SYSTEMS: 10 Systems were reviewed and negative with the exception of the elements mentioned in the history of present illness. Exam Constitutional nontoxic, triage nursing summary reviewed, vital signs reviewed , awake/alert. Vital signs noted be tachycardic at triage Eyes normal conjunctivae and sclera, EOMI, PERRLA. HENT normal inspection, atraumatic, moist mucus membranes, no epistaxis, neck supple/ no meningismus, no raccoon eyes. Respiratory clear to auscultation bilaterally, normal breath sounds, no respiratory distress, no wheezing. Cardiovascular tachycardia, regular rhythm, no murmur, no edema, distal pulses normal. Gastrointestinal soft, non-tender, no rebound, no guarding, normal bowel sounds, no distension, no pulsatile mass. Genitourinary no CVA tenderness. Musculoskeletal no midline vertebral tenderness, full range of motion, no calf swelling, no tenderness of extremities, no meningismus, good pulses, neurovascularly intact. Skin pink, warm, & dry, no rash, skin atraumatic. Neurologic awake, alert and oriented x 3, AAOx3, moves all 4 extremities equally, motor intact, sensory intact, CN II-XII intact, normal cerebellar, normal vision, normal speech. Psychiatric normal mood/affect. Heme/Lymph/Immune no lymphadenopathy. Differential Diagnosis: Differential diagnosis includes but is not limited to and in no particular order: Bowel obstruction, appendicitis, gallbladder disease, diverticulitis, colitis, enteritis, perforated viscus, gastritis, GERD , esophagitis, urinary tract infection, pyelonephritis, kidney stones Medical Decision Making: Plan for this patient IV establishment IV fluid bolus , IV Zofran for nausea, basic labs, and re-evaluate. Check lipase, LFTs, alcohol level. Re-evaluation: EKG interpretation by me on record in [employer] system. Impression time of EKG 0038, sinus rhythm rate of 93, left axis deviation present. Computer's reading minimal ST elevation in anterior leads however when I compare this to his old EKG dated 04/08/2018 EKG appears unchanged. Patient does not have chest pain. He is here with abdominal pain. 1:12 a.m. patient re-evaluated he denies any chest pain or shortness of breath he does complain of right upper quadrant abdominal pain. Is not any vomiting here. Labs reviewed. Negative troponin. EKG interpretation by me on record in [employer] system. Impression time of EKG 1:53 a.m., sinus rhythm rate of 88, borderline left axis deviation, there is no signs of acute ischemia. I do not appreciate significant ST elevation. CT scan abdomen pelvis with IV contrast faxed me by direct Radiology at time 8: 05 p.m. This shows diffuse mucosal thickening of the stomach new from prior exam secondary gastritis incidental finding noted infected taking periumbilical hernia and a complicated colonic diverticula. 0403: Patient re-evaluated this time he still complains at the gastric abdominal pain no chest pain or shortness of breath. He states feels very nauseous. Given CT scan finding plan will be for admission the hospital for gastritis, nausea vomiting control. 409 a.m. re-evaluated still having some epigastric comfort. Nausea. Plan. Patient activation IV fluids bowel rest. CT scan shows gastritis. Source: Patient - Personal History Tetanus Vaccine Date: 03/25/11 - Medical/Surgical History Hx Asthma: No Hx Chronic Respiratory Disease: No Hx Diabetes: No Hx Cardiac Disease: Yes Hx Renal Disease: No Hx Cirrhosis: No Hx Alcoholism: Yes Hx HIV/AIDS: No Hx Splenectomy or Spleen Trauma: No Other PMH: PMH- Prostate Ca., Hep. C- TREATED , HTN, ETOH, bipolar, schizo affective, withsrawal szs, LUNG NODULE. PSH- bilat feet, knee replacement, glaucoma. arthritis - Social History Smoking Status: Former smoker Constitutional: Initial Vital Signs Heart Rate 141 H 10/17/18 22:58 Respiratory Rate 20 10/17/18 22:58 Blood Pressure 110/77 10/17/18 22:58 O2 Sat (%) 95 10/17/18 22:58 O2 Delivery Mode Room Air Allergies/Adverse Reactions: Iodinated Contrast- Oral and IV Dye Allergy (Unknown, Verified 10/17/18 23:01) Unknown Home Medications: Medication Instructions Recorded Lisinopril [Zestril 20 mg (*)] 20 mg PO DAILY 04/08/18 Acetaminophen [Tylenol 325mg (*)] 325 mg PO Q6 PRN 10/18/18 Albuterol [Proventil Inhaler HFA 1 - 2 puffs IH Q4H PRN 10/18/18 (*)] Multivitamins [Multivitamin (*)] 1 each PO DAILY 10/18/18 Pantoprazole Sodium [Protonix 40mg 40 mg PO DAILY tab 10/18/18 (*)] Medical Decision Making - Data Points Laboratory Results: Laboratory Results 10/17/18 23:22 10/17/18 23:22 Medications Given: Discontinued Medications Diphenhydramine HCl (Benadryl Injection) 25 mg IVP EDNOW ONE Stop: 10/18/18 00:24 Last Admin: 10/18/18 00:27 Dose: 25 mg Famotidine (Pepcid) 20 mg IVP EDNOW ONE Stop: 10/18/18 02:11 Last Admin: 10/18/18 02:40 Dose: 20 mg Sodium Chloride (Ns) 1,000 mls @ 0 mls/hr IV EDNOW ONE; Wide Open PRN Reason: Protocol Stop: 10/17/18 23:11 Last Admin: 10/17/18 23:26 Dose: 1,000 mls Sodium Chloride (Ns) 1,000 mls @ 100 mls/hr IV CONT RUTHY Stop: 04/16/19 04:44 Last Admin: 10/18/18 05:18 Dose: 1,000 mls Methylprednisolone Sodium Succinate (Solu-Medrol) 125 mg IVP EDNOW ONE Stop: 10/18/18 00:24 Last Admin: 10/18/18 00:27 Dose: 125 mg Ondansetron HCl (Zofran) 4 mg IVP EDNOW ONE Stop: 10/17/18 23:29 Last Admin: 10/17/18 23:32 Dose: 4 mg Pantoprazole Sodium (Protonix) 40 mg PO DAILY RUTHY Stop: 04/16/19 08:59 Last Admin: 10/18/18 09:28 Dose: 40 mg Point of Care Test Results: Chemistry 10/18/18 10/17/18 02:04 23:41 POC Troponin I 0.00 ng/mL ng/mL 0.00 ng/mL ng/mL (0.00-0.08) (0.00-0.08) Departure - Departure Disposition: [facility] Inpatient Acute Clinical Impression: Gastritis Qualifiers: Gastritis type: unspecified gastritis Chronicity: acute Gastritis bleeding: without bleeding Qualified Code(s): K29.00 - Acute gastritis without bleeding Condition: Good
[2018-10-17] MEDS ORDERED: ONDANSETRON 4 MG/2 ML VIAL ONE (23:24)
[2018-10-17] MEDS ORDERED: ONDANSETRON 4 MG/2 ML VIAL IVP ONE (23:28)
[2018-10-17 23:32] LABS: PLATELET COUNT 357 10^3/uL (150-400)
[2018-10-17 23:40] LABS: INR 1.02 (0.83-1.16)
[2018-10-18] MEDS ORDERED: IOPAMIDOL (ISOVUE-300) 100 ML BTL ONE (00:08)
[2018-10-18] MEDS ORDERED: methylPREDNISolone SOD SUCC 125 MG/2 ML VIAL IVP ONE (00:23)
[2018-10-18] MEDS ORDERED: FAMOTIDINE 20 MG/2 ML SDV IVP ONE (02:10)
[2018-10-18] MEDS ORDERED: ONDANSETRON DISINTEGRATING 4 MG TAB PO PRN (04:09)
[2018-10-18] MEDS ORDERED: ONDANSETRON 4 MG/2 ML VIAL IVP PRN (04:09)
[2018-10-18] MEDS ORDERED: PROMETHAZINE HCL 25 MG/ML INJ IVP PRN (04:09)
[2018-10-18] MEDS ORDERED: ACETAMINOPHEN 325 MG TAB PO PRN (04:09)
--- NOTE | 2018-10-18 04:41 | PDGENHP ---
History and Physical - Chief Complaint Vomiting - History of Present Illness 63 yo M w/ hx of schizoaffective d/o and prior ETOH use d/o presents with 5 days of abdominal pain and vomiting. The patient has had problems with alcoholism for decades but has been sober for the last 2 years. He drank 3 beers 7 days ago for the first time in years due to family stress. He denies any withdrawal symptoms. He also takes 8-10 ibuprofen tabs daily for R knee pain. He drinks a lot of coffee and denies tobacco use. Over the last 5 days he has had essentially intractable vomiting. A CT scan demonstrates gastritis. He feels much better after one dose of Pepcid IV. He is being admitted for observation as he does not think he can tolerate PO yet. Case discussed with ED physician Dr. Ramírez; records reviewed and summarized above. History Information - Allergies/Home Medication List Allergies/Adverse Reactions: Iodinated Contrast- Oral and IV Dye Allergy (Unknown, Verified 10/17/18 23:01) Unknown Home Medications: Lisinopril [Zestril 20 mg (*)] 04/08/18 [Last Taken Unknown] I have personally reviewed and updated: family history, medical history - Past Medical History Additional medical history: Schizoaffective d/o - Surgical History Additional surgical history: R TKA - Family History Additional family history: Psychiatric disease - Social History Smoking Status: Former smoker Review of Systems Review of Systems: ROS: 10pt was reviewed & negative except for what was stated in HPI & below Physical Exam Physical Exam: Temp Pulse Resp BP Pulse Ox 36.7 C 92 18 147/107 H 96 10/18/18 04:25 10/18/18 04:25 10/18/18 04:25 10/18/18 04:25 10/18/18 04:25 Constitutional: appears nourished, uncomfortable Eyes: PERRL, EOMI Ears, Nose, Mouth, Throat: moist mucous membranes, no oral mucosal ulcers Cardiovascular: regular rate and rhythym, no murmur, rub, or gallop Respiratory: no respiratory distress, clear to auscultation Gastrointestinal: normoactive bowel sounds, soft, non-tender abdomen Skin: warm, normal color Musculoskeletal: full muscle strength, no muscle tenderness Neurologic: AAOx3, CN II-XII Intact Psychiatric: interacting appropriately, not anxious Lab Data & Imaging Review 10/17/18 23:22 10/17/18 23:22 WBC 10.26 10^3/uL (3.80-9.50) H 10/17/18 23:22 RBC 5.54 10^6/uL (4.40-6.38) 10/17/18 23:22 Hgb 17.9 g/dL (13.7-17.5) H 10/17/18 23:22 Hct 50.7 % (40.0-51.0) 10/17/18 23:22 MCV 91.5 fL (81.5-99.8) 10/17/18 23:22 MCH 32.3 pg (27.9-34.1) 10/17/18 23:22 MCHC 35.3 g/dL (32.4-36.7) 10/17/18 23:22 RDW 12.4 % (11.5-15.2) 10/17/18 23:22 Plt Count 357 10^3/uL (150-400) 10/17/18 23:22 MPV 9.6 fL (8.7-11.7) 10/17/18 23:22 Neut % (Auto) 63.7 % (39.3-74.2) 10/17/18 23:22 Lymph % (Auto) 25.1 % (15.0-45.0) 10/17/18 23:22 [place] % (Auto) 9.9 % (4.5-13.0) 10/17/18 23:22 Eos % (Auto) 0.4 % (0.6-7.6) L 10/17/18 23:22 Baso % (Auto) 0.5 % (0.3-1.7) 10/17/18 23:22 Nucleat RBC Rel Count 0.0 % (0.0-0.2) 10/17/18 23:22 Absolute Neuts (auto) 6.53 10^3/uL (1.70-6.50) H 10/17/18 23:22 Absolute Lymphs (auto) 2.58 10^3/uL (1.00-3.00) 10/17/18 23:22 Absolute Monos (auto) 1.02 10^3/uL (0.30-0.80) H 10/17/18 23:22 Absolute Eos (auto) 0.04 10^3/uL (0.03-0.40) 10/17/18 23:22 Absolute Basos (auto) 0.05 10^3/uL (0.02-0.10) 10/17/18 23:22 Absolute Nucleated RBC 0.00 10^3/uL (0-0.01) 10/17/18 23:22 Immature Gran % 0.4 % (0.0-1.1) 10/17/18 23:22 Immature Gran # 0.04 10^3/uL (0.00-0.10) 10/17/18 23:22 PT 13.0 SEC (12.0-15.0) 10/17/18 23:22 INR 1.02 (0.83-1.16) 10/17/18 23:22 APTT 24.4 SEC (23.0-38.0) 10/17/18 23:22 Sodium 139 mEq/L (135-145) 10/17/18 23:22 Potassium 3.7 mEq/L (3.5-5.2) 10/17/18 23:22 Chloride 103 mEq/L (97-110) 10/17/18 23:22 Carbon Dioxide 18 mEq/l (22-31) L 10/17/18 23:22 Anion Gap 18 mEq/L (6-14) H 10/17/18 23:22 BUN 28 mg/dL (7-23) H 10/17/18 23:22 Creatinine 1.3 mg/dL (0.7-1.3) 10/17/18 23:22 Estimated GFR 56 10/17/18 23:22 Glucose 136 mg/dL (70-100) H 10/17/18 23:22 Calcium 10.0 mg/dL (8.5-10.4) 10/17/18 23:22 Magnesium 1.9 mg/dL (1.6-2.3) 10/18/18 00:48 Total Bilirubin 1.5 mg/dL (0.1-1.4) H 10/17/18 23:22 Conjugated Bilirubin 0.5 mg/dL (0.0-0.5) 10/17/18 23:22 Unconjugated Bilirubin 1.0 mg/dL (0.0-1.1) 10/17/18 23:22 AST 40 IU/L (17-59) 10/17/18 23:22 ALT 55 IU/L (21-72) 10/17/18 23:22 Alkaline Phosphatase 61 IU/L (38-126) 10/17/18 23:22 POC Troponin I 0.00 ng/mL (0.00-0.08) 10/18/18 02:04 Total Protein 7.7 g/dL (6.3-8.2) 10/17/18 23:22 Albumin 4.6 g/dL (3.5-5.0) 10/17/18 23:22 Lipase 194 IU/L (23-300) 10/17/18 23:22 Urine Color JAMES 10/17/18 23:30 Urine Appearance HAZY 10/17/18 23:30 Urine pH 6.0 (5.0-7.5) 10/17/18 23:30 Ur Specific [place] 1.025 (1.002-1.030) 10/17/18 23:30 Urine Protein 1+ (NEGATIVE) H 10/17/18 23:30 Urine Ketones 1+ (NEGATIVE) H 10/17/18 23:30 Urine Blood NEGATIVE (NEGATIVE) 10/17/18 23:30 Urine Nitrate NEGATIVE (NEGATIVE) 10/17/18 23:30 Urine Bilirubin NEGATIVE (NEGATIVE) 10/17/18 23:30 Urine Urobilinogen 4.0 EU (0.2-1.0) H 10/17/18 23:30 Ur Leukocyte Esterase NEGATIVE (NEGATIVE) 10/17/18 23:30 Urine RBC 1-3 /hpf (0-3) 10/17/18 23:30 Urine WBC 1-3 /hpf (0-3) 10/17/18 23:30 Ur Epithelial Cells NONE SEEN /lpf (NONE-1+) 10/17/18 23:30 Hyaline Casts 1-5 /lpf (0-1) 10/17/18 23:30 Urine Mucus 1+ /lpf (NONE-1+) 10/17/18 23:30 Urine Glucose NEGATIVE (NEGATIVE) 10/17/18 23:30 Ethyl Alcohol < 10 mg/dL (0-10) 10/17/18 23:22 Assessment & Plan Assessment: 63 yo M w/ hx of schizoaffective d/o presents with gastritis. Plan: 1. Gastritis - Presents with 5 days of persistent vomiting. CT (personally reviewed/interpreted) demonstrates gastritis. I suspect this is mostly due to ibuprofen use as he takes 8-10 tabs daily for knee pain. - Admit for observation - Clear liquid diet, mIVF, ADAT - Anti-emetics PRN - Start daily PPI - Advised patient to stop NSAIDs, decrease coffee intake, avoid ETOH, and spicy/ fried foods 2. ETOH use d/o - Patient has been sober for 2 years until drinking 3 beers 7 days ago, per his report. His BAL is 0 on admission and he demonstrates no signs of withdrawal currently. - Counseled continued abstinence 3. Hx schizoaffective d/o - Normal mood and affect during my evaluation. He is not currently on medications but seems to be doing reasonably well now that he has decreased his ETOH use. 4. AGMA - I suspect this is related to severe vomiting and ketosis. - Acute management as above Diet - Clears, mIVF, ADAT Code - Full Ppx - SCDs Dispo - Admit under observation status
[2018-10-18] MEDS ORDERED: ACETAMINOPHEN 500 MG TAB PO PRN (04:42)
[2018-10-18] MEDS ORDERED: NS 1,000 ML IV SCH (04:45)
[2018-10-18] MEDS ORDERED: PANTOPRAZOLE SODIUM 40 MG TAB PO SCH (09:00)
[2018-10-18 11:43] VITALS: BP 140/86
[2018-10-18] MEDS ORDERED: ALBUTEROL 60 PUFFS/8 GM MDI IH PRN (12:33)
--- NOTE | 2018-10-18 15:53 | PDDCSUM ---
Discharge Summary Discharge Summary: Discharge diagnosis Gastritis Intractable nausea and vomiting Schizoaffective disorder Hypertension Patient presented the emergency room with history of 5 days of intractable nausea vomiting. He stated that he had been sober for 3 years and then drink 3 beers seems to have spur his symptoms. In the ER a CT was obtained which demonstrated gastritis. He was given a dose of Pepcid which seemed effective in eliminating nearly all of his symptoms. He was admitted for monitoring as he did not think he can take p.o.. His symptoms resolved quickly his diet was advanced and fluids were stopped. The following morning he was tolerating p.o. Without complaints in requesting discharge. He was discharged home to follow up with his primary care physician. Prescription for Protonix was sent to his pharmacy. He was discharged home to follow up with his primary care physician for further evaluation of his gastritis.
--- NOTE | 2018-10-18 16:45 | ASMTCMCOM ---
CM Note CM Note Notes: Chart review for discharge planning: Patient is a 63 year old male who presented to [facility] ED with nausea, multiple episodes of bilious vomiting, and abdominal pain described as epigastric burning. Medical history includes schizoaffective disorder bipolar type, history of EtOH use disorder, cocaine use, right TKA and reports taking 8-10 ibuprofen for knee pain. Patient was last admitted with [facility] in 08/2017 for behavioral health needs/ M1 hold. Patient admitted under observation, plan to address Gastritis. There are no therapies ordered at this time, patient does not require O2. Discharge orders placed, patient to discharge home independent. CM available to support if CM needs arise. Date Signed: 10/18/2018 04:44 PM Electronically Signed By:Helen Adam
== END 2018-10-18 17:05 | disposition home or self-care (01) ==
LOC: F3E 10-18 04:45
PROVIDERS: ADMIT Student in an Organized Health Care Education/Training Program; ATTEND Internal Medicine
DX: K29.70 Gastritis, unspecified, without bleeding (principal); R11.2 Nausea with vomiting, unspecified; E86.9 Volume depletion, unspecified; F25.9 Schizoaffective disorder, unspecified; I10 Essential (primary) hypertension; Z85.46 Personal history of malignant neoplasm of prostate; Z87.891 Personal history of nicotine dependence
CPT/HCPCS: 74177; 96361; 96374; 96375; 99285; G0378; J1200; J2405; J2930; Q9967; 84484-ER; G0480

== ENCOUNTER 2018-11-25 02:23 | Emergency (ER) | payer OTHER, MEDICAID ==
--- NOTE | 2018-11-25 02:54 | EDPHY ---
H & P Stated Complaint: drank bleach ?? si Source: Patient - Personal History Current Tetanus/Diphtheria Vaccine: Yes Current Tetanus Diphtheria and Acellular Pertussis (TDAP): Yes Tetanus Vaccine Date: 03/25/11 - Medical/Surgical History Hx Asthma: No Hx Chronic Respiratory Disease: No Hx Diabetes: No Hx Cardiac Disease: Yes Hx Renal Disease: No Hx Cirrhosis: No Hx Alcoholism: Yes Hx HIV/AIDS: No Hx Splenectomy or Spleen Trauma: No Other PMH: PMH- Prostate Ca., Hep. C- TREATED , HTN, ETOH, bipolar, schizo affective, withsrawal szs, LUNG NODULE. PSH- bilat feet, knee replacement, glaucoma. arthritis - Social History Smoking Status: Former smoker Time Seen by Provider: 11/25/18 02:53 HPI/ROS: HPI CHIEF COMPLAINT: Suicidal ideation, M1 hold by police. HISTORY OF PRESENT ILLNESS: Patient is a 63-year-old male, history of schizophrenia, bipolar disorder, alcoholism with alcohol abuse, presents emergency room on M1 hold for suicidal ideation. Patient reports to me that he drank bleach 20 hr ago. Called the suicide hotline stating that he want to kill himself. He no longer feels suicidal upon arrival here. He is resting comfortably. He denies any complaints. Past Medical History: Schizophrenia, depression, alcohol abuse with alcoholism Past Surgical History: No recent surgery Social History: Lives locally. Alcoholism. Family History: Noncontributory ROS REVIEW OF SYSTEMS: 10 Systems were reviewed and negative with the exception of the elements mentioned in the history of present illness. Exam Constitutional triage nursing summary reviewed, vital signs reviewed, awake/ alert. Eyes normal conjunctivae and sclera, EOMI, PERRLA. HENT No edouard to the mouth. normal inspection, atraumatic, moist mucus membranes, no epistaxis, neck supple/ no meningismus, no raccoon eyes. Respiratory clear to auscultation bilaterally, normal breath sounds, no respiratory distress, no wheezing. Cardiovascular rate normal, regular rhythm, no murmur, no edema, distal pulses normal. Gastrointestinal soft, non-tender, no rebound, no guarding, normal bowel sounds, no distension, no pulsatile mass. Genitourinary no CVA tenderness. Musculoskeletal no midline vertebral tenderness, full range of motion, no calf swelling, no tenderness of extremities, no meningismus, good pulses, neurovascularly intact. Skin pink, warm, & dry, no rash, skin atraumatic. Neurologic awake, alert and oriented x 3, AAOx3, moves all 4 extremities equally, motor intact, sensory intact, CN II-XII intact, normal cerebellar, normal vision, normal speech. Psychiatric sleepy flat affect. Heme/Lymph/Immune no lymphadenopathy. Differential Diagnosis: Includes but is not limited to in a particular order depression, mood disorder, bipolar disorder, suicidal ideation. Medical Decision Making: Plan for this patient IV establishment blood draw, basic labs, will contact poison Control about bleach ingestion. Re-evaluation: [id number]: Patient sleeping. NAD. VSS. Patient on M1 hold signed over to Dr. Patel 7am (Luis Ramirez) Constitutional: Initial Vital Signs Temperature (C) 36.7 C 11/25/18 02:46 Heart Rate 96 11/25/18 02:46 Respiratory Rate 18 11/25/18 02:46 Blood Pressure 138/100 H 11/25/18 02:46 O2 Sat (%) 96 11/25/18 02:46 O2 Delivery Mode Room Air Allergies/Adverse Reactions: Iodinated Contrast- Oral and IV Dye Allergy (Unknown, Verified 10/17/18 23:01) Unknown Home Medications: Medication Instructions Recorded Lisinopril [Zestril 20 mg (*)] 20 mg PO DAILY 04/08/18 Acetaminophen [Tylenol 325mg (*)] 325 mg PO Q6 PRN 10/18/18 Albuterol [Proventil Inhaler HFA 1 - 2 puffs IH Q4H PRN 10/18/18 (*)] Multivitamins [Multivitamin (*)] 1 each PO DAILY 10/18/18 Pantoprazole Sodium [Protonix 40mg 40 mg PO DAILY tab 10/18/18 (*)] Medical Decision Making ED Course/Re-evaluation: 919: I spoke with the mental health transport technician after the patient was evaluated. He is safe to be discharged with close follow up by a mental health provider. Return precautions provided; patient is comfortable with this plan. (Cole Patel) - Data Points Laboratory Results: Laboratory Results 11/25/18 04:00 11/25/18 04:00 11/25/18 11/25/18 11/25/18 06:48 04:00 04:00 WBC 6.01 10^3/uL 10^3/uL (3.80-9.50) RBC 4.85 10^6/uL 10^6/uL (4.40-6.38) Hgb 15.8 g/dL g/dL (13.7-17.5) Hct 46.1 % % (40.0-51.0) MCV 95.1 fL fL (81.5-99.8) MCH 32.6 pg pg (27.9-34.1) MCHC 34.3 g/dL g/dL (32.4-36.7) RDW 13.9 % % (11.5-15.2) Plt Count 341 10^3/uL 10^3/uL (150-400) MPV 9.1 fL fL (8.7-11.7) Neut % (Auto) 38.0 % L % (39.3-74.2) Lymph % (Auto) 47.4 % H % (15.0-45.0) [place] % (Auto) 10.1 % % (4.5-13.0) Eos % (Auto) 3.0 % % (0.6-7.6) Baso % (Auto) 1.2 % % (0.3-1.7) Nucleat RBC Rel Count 0.0 % % (0.0-0.2) Absolute Neuts (auto) 2.28 10^3/uL 10^3/uL (1.70-6.50) Absolute Lymphs (auto) 2.85 10^3/uL 10^3/uL (1.00-3.00) Absolute Monos (auto) 0.61 10^3/uL 10^3/uL (0.30-0.80) Absolute Eos (auto) 0.18 10^3/uL 10^3/uL (0.03-0.40) Absolute Basos (auto) 0.07 10^3/uL 10^3/uL (0.02-0.10) Absolute Nucleated RBC 0.00 10^3/uL 10^3/uL (0-0.01) Immature Gran % 0.3 % % (0.0-1.1) Immature Gran # 0.02 10^3/uL 10^3/uL (0.00-0.10) Sodium 144 mEq/L mEq/L (135-145) Potassium 4.4 mEq/L mEq/L (3.5-5.2) Chloride 113 mEq/L H mEq/L (97-110) Carbon Dioxide 20 mEq/l L mEq/l (22-31) Anion Gap 11 mEq/L mEq/L (6-14) BUN 12 mg/dL mg/dL (7-23) Creatinine 0.9 mg/dL mg/dL (0.7-1.3) Estimated GFR > 60 Glucose 90 mg/dL mg/dL (70-100) Calcium 9.3 mg/dL mg/dL (8.5-10.4) Salicylates < 1.0 mg/dL L mg/dL (2.0-20.0) Urine Opiates Screen NEGATIVE (NEGATIVE) Acetaminophen < 10 mcg/mL L mcg/mL (10-30) Urine Barbiturates NEGATIVE (NEGATIVE) Ur Phencyclidine Scrn NEGATIVE (NEGATIVE) Ur Amphetamine Screen NEGATIVE (NEGATIVE) U Benzodiazepines Scrn NEGATIVE (NEGATIVE) Urine Cocaine Screen NEGATIVE (NEGATIVE) U Marijuana (THC) Screen NEGATIVE (NEGATIVE) Ethyl Alcohol 107 mg/dL H mg/dL (0-10) Departure - Departure Disposition: Home, Routine, Self-Care Clinical Impression: Suicidal ideations Condition: Good Instructions: Depression (ED), Suicide Prevention (ED) Additional Instructions: 1. Follow-up with your mental health provider as directed. 2. Return to the ED for thoughts of self-harm, racing thoughts or other concerns. Referrals: Leidy Dinero MD [Primary Care Provider] - As per Instructions [facility],. [Clinic] - As per Instructions
[2018-11-25 04:20] LABS: PLATELET COUNT 341 10^3/uL (150-400)
[2018-11-25 09:37] VITALS: BP 128/83
== END 2018-11-25 09:42 | disposition home or self-care (01) ==
DX: R45.851 Suicidal ideations (principal); F32.9 Major depressive disorder, single episode, unspecified; F20.9 Schizophrenia, unspecified; F10.10 Alcohol abuse, uncomplicated
CPT/HCPCS: 80305; G0480

== ENCOUNTER 2018-12-09 15:58 | Emergency (ER) | payer OTHER, MEDICAID ==
--- NOTE | 2018-12-09 16:24 | EDPHY ---
H & P Stated Complaint: SI-- Source: Patient, Old records - Personal History Tetanus Vaccine Date: 03/25/11 - Medical/Surgical History Hx Asthma: No Hx Chronic Respiratory Disease: No Hx Diabetes: No Hx Cardiac Disease: No Hx Renal Disease: No Hx Cirrhosis: No Hx Alcoholism: Yes Hx HIV/AIDS: No Hx Splenectomy or Spleen Trauma: No Other PMH: PMH- Prostate Ca., Hep. C- TREATED , HTN, ETOH, bipolar, schizo affective, withdrawal szs, - Social History Smoking Status: Current every day smoker Time Seen by Provider: 12/09/18 16:18 HPI/ROS: HPI: This is a 63-year-old male who presents with Chief Complaint: Suicidal ideation Location: Psychiatric Quality: Suicidal ideation Duration: 1 month Signs and Symptoms: no fever, no nausea, no vomiting, no hematemesis, no blood in stool, no abdominal bloating, no diarrhea, no back pain, no urinary symptoms , no testicular/groin pain, no indigestion, no chest pain, no shortness of breath Timing: Rapidly worsening Severity: Severe Context: Patient has a history of alcohol abuse, bipolar disorder, schizoaffective disorder presents with complaints of worsening, severe major depression accompanied by daily suicidal thoughts over the last 1 month. He reports that his twin brother committed suicide 1 month ago. He has been drinking daily and admits to last alcohol use 3 hr ago. He lives alone and does not feel safe to be by himself. Patient endorses auditory hallucinations and paranoia. Received 15 treatments of ECT therapy in September and October 2014 at [facility]. + auditory hallucinations, no visual hallucinations, + suicidal ideation with a plan, no homicidal ideation, + paranoia Modifying Factors: None Comment: ROS: A comprehensive 10 system review of systems is otherwise negative aside from elements mentioned in the history of present illness. MEDICAL/SURGICAL/SOCIAL HISTORY: Medical history: Prostate Ca., Hep. C- TREATED , HTN, ETOH, bipolar, schizo affective, withdrawal szs Surgical history: Denies Social history: Current every day tobacco user. Daily alcohol use/abuse. Denies drug use. Single. Family history noncontributory. CONSTITUTIONAL: Intoxicated, polite and cooperative, elderly white male, awake and alert, no obvious distress HEENT: Atraumatic and normocephalic, PERRL, EOMI. Nares patent; no rhinorrhea; no nasal mucosal edema. Tympanic membranes clear. Oropharynx clear, no exudate and moist pink mucosa. Airway patent. No lymphadenopathy. No meningismus. Cardiovascular: Normal S1/S2, tachycardia, regular rhythm, without murmur rub or gallop. PULMONARY/CHEST: Symmetrical and nontender. Clear to auscultation bilaterally. Good air movement. No accessory muscle usage. ABDOMEN: Soft, nondistended, nontender, no rebound, no guarding, no peritoneal signs, no masses or organomegaly. No CVAT. EXTREMITIES: 2/2 pulses, strength 5/5, no deformities, no clubbing, no cyanosis or edema. NEUROLOGICAL: no focal neuro deficits. GCS 15. SKIN: Warm and dry, no erythema. no rash. Good capillary refill. PSYCH: Poor eye contact, now flight of ideas, relatively organized thought process, poor insight and judgment, + auditory hallucinations, no visual hallucinations, + suicidal ideation with a plan, no homicidal ideation, + paranoia ([place]) Constitutional: Initial Vital Signs Temperature (C) 36.7 C 12/09/18 16:07 Heart Rate 110 H 12/09/18 16:07 Respiratory Rate 20 12/09/18 16:07 Blood Pressure 180/100 H 12/09/18 16:07 O2 Sat (%) 95 12/09/18 16:07 O2 Delivery Mode Room Air Allergies/Adverse Reactions: Iodinated Contrast- Oral and IV Dye Allergy (Unknown, Verified 10/17/18 23:01) Unknown Home Medications: Medication Instructions Recorded Lisinopril [Zestril 20 mg (*)] 20 mg PO DAILY 04/08/18 Albuterol [Proventil Inhaler HFA 1 - 2 puffs IH Q4H PRN 10/18/18 (*)] Medical Decision Making ED Course/Re-evaluation: Patient was evaluated by [facility]. They feel the patient is not suicidal. They recommend having the hold lifted. The patient feels comfortable with this plan. (Vani Silveira) Vital signs reviewed and show elevated blood pressure and tachycardia upon arrival. Placed on M1 hold for severe major depression with suicidal ideation. Labs and urine drug screen ordered 1700: Laboratory studies reviewed and grossly unremarkable. [id number]. Urine drug screen This patient was seen under the supervision of my secondary supervising physician. I evaluated and cared for this patient with attending. (Nelly Moncada) Differential Diagnosis: Differential diagnosis includes but is not limited to major depression, anxiety disorder, schizophrenia, bipolar disorder, intoxicant use, suicidal ideation, psychosis, jared. (Nelly Moncada) - Data Points Laboratory Results: Laboratory Results 12/09/18 16:30 12/09/18 16:30 Departure - Departure Disposition: Home, Routine, Self-Care Clinical Impression: Bipolar disorder with severe depression, Alcoholic intoxication without complication Condition: Fair Instructions: Bipolar Disorder (ED), Alcohol Intoxication (ED) Additional Instructions: Return with worsening symptoms or any other concerns. Referrals: [facility],. [Clinic] - 5-7 days, call for appt.
[2018-12-09] MEDS ORDERED: LORazepam 1 MG TAB PO PRN (16:59)
[2018-12-09 17:23] LABS: PLATELET COUNT 305 10^3/uL (150-400)
[2018-12-09 20:41] VITALS: BP 98/73
== END 2018-12-09 20:53 | disposition home or self-care (01) ==
DX: F10.920 Alcohol use, unspecified with intoxication, uncomplicated (principal); F32.9 Major depressive disorder, single episode, unspecified; Z85.46 Personal history of malignant neoplasm of prostate
CPT/HCPCS: 80305; G0480

== ENCOUNTER 2018-12-28 17:44 | Emergency (ER) | payer OTHER, MEDICAID | END 2018-12-28 19:51 | disposition home or self-care (01) ==